=== PATIENT | female | born 1975 | race African-American/Black ===

== ENCOUNTER 2016-08-02 15:43 | Emergency (ER) | payer OTHER ==
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
[2016-08-02 17:51] VITALS: BP 140/88
== END 2016-08-02 17:50 | disposition home or self-care (01) ==
LOC: ER 15:43
DX: S16.1XXA Strain of muscle, fascia and tendon at neck level, initial encounter (principal); S40.012A Contusion of left shoulder, initial encounter; M54.2 Cervicalgia; V43.52XA Car driver injured in collision with other type car in traffic accident, initial encounter; R03.0 Elevated blood-pressure reading, without diagnosis of hypertension; M54.9 Dorsalgia, unspecified; G89.29 Other chronic pain; Z79.891 Long term (current) use of opiate analgesic; Z79.899 Other long term (current) drug therapy
CPT/HCPCS: 99284; 73030; 72125; L0120

== ENCOUNTER 2017-04-19 07:33 | Observation (INO) | payer MEDICARE, MEDICAID ==
[2017-04-19] MEDS ORDERED: MORPHINE SULFATE 10 MG/ML INJ IV ONE (07:58)
[2017-04-19] MEDS ORDERED: RINGERS SOLUTION,LACTATED 1,000 ML IV PRN (08:01)
--- NOTE | 2017-04-19 08:01 | ER Document Report ---
ED General - General Chief Complaint: Boil Stated Complaint: SKIN SORE ON RIGHT BREAST Time Seen by Provider: 04/19/17 07:51 Notes: Patient is a 42-year-old female presents emergency department after referral from the surgery clinic after evaluation yesterday. Patient admits to right breast abscess which she has a history of before that started on Friday. She states she was evaluated in the surgery clinic yesterday and referred to the ED for evaluation to be seen today. She admits to significant pain and refuses to touch or clean the area. She states she has been taking oxycodone at home for pain. N.p.o. before midnight. denies h/o MRSA TRAVEL OUTSIDE OF THE [place] IN LAST 30 DAYS: No - Related Data Allergies/Adverse Reactions: acetaminophen [From Darvocet-N] Adverse Reaction (Verified 04/19/17 08:35) cyclobenzaprine [From Flexeril] Adverse Reaction (Verified 04/19/17 08:35) ibuprofen Adverse Reaction (Verified 04/19/17 08:36) methocarbamol [From Robaxin] Adverse Reaction (Verified 04/19/17 08:35) naproxen [From Naprosyn] Adverse Reaction (Verified 04/19/17 08:35) propoxyphene [From Darvocet-N] Adverse Reaction (Verified 04/19/17 08:35) sulfamethoxazole [From Bactrim] Adverse Reaction (Verified 04/19/17 08:36) trimethoprim [From Bactrim] Adverse Reaction (Verified 04/19/17 08:36) Past Medical History - Social History Smoking Status: Current Every Day Smoker Family History: Reviewed & Not Pertinent Renal/ Medical History: Denies: Hx Peritoneal Dialysis Review of Systems - Review of Systems Constitutional: No symptoms reported Cardiovascular: No symptoms reported Respiratory: No symptoms reported Gastrointestinal: No symptoms reported Skin: See HPI -: Yes All other systems reviewed and negative Physical Exam - Vital signs Vitals: Temp Pulse Resp BP Pulse Ox 98.4 F 112 H 18 114/61 98 04/19/17 07:38 04/19/17 07:38 04/19/17 07:38 04/19/17 07:38 04/19/17 07:38 - Notes Notes: PHYSICAL EXAM GENERAL: Alert, interacts well. LUNGS: Clear to auscultation bilaterally, no wheezes, rales, or rhonchi. No respiratory distress. HEART: Regular rate and rhythm. No murmurs, gallops, or rubs. Breast: patient refused EXTREMITIES: Moves all 4 extremities spontaneously. No edema, radial and dorsalis pedis pulses 2/4 bilaterally. No cyanosis. NEUROLOGICAL: Alert and oriented x4. Normal speech. PSYCH: Normal affect, normal mood. Course - Re-evaluation Re-evalutation: 04/19/17 08:01 Patient is a 42-year-old female is hemodynamically stable, no acute distress afebrile. I did consult Dr. Betancur who is the surgeon auto phone installer to come and evaluate the patient for right breast abscess. Patient to be kept n.p.o., will establish IV access pending surgeon evaluation. 04/19/17 08:53 Patient to be kept n.p.o. and will go or direct with Dr. Betancur. Labs and test sent. - Vital Signs Vital signs: Temp Pulse Resp BP Pulse Ox 98.4 F 112 H 18 114/61 98 04/19/17 07:38 04/19/17 07:38 04/19/17 07:38 04/19/17 07:38 04/19/17 07:38 - Laboratory Result Diagrams: 04/19/17 08:40 Discharge - Discharge Clinical Impression: Abscess of right breast Condition: Stable Disposition: SAME DAY SURGERY Admitting Provider: Surgicalist Unit Admitted: OR
[2017-04-19] MEDS ORDERED: FENTANYL CITRATE INJ/PF 100 MCG/2 ML AMPUL ONE ×2 (08:09→11:00)
[2017-04-19] MEDS ORDERED: PROPOFOL INJ 200 MG/20 ML VIAL IV ONE (08:09)
[2017-04-19] MEDS ORDERED: MIDAZOLAM 2 MG/2 ML INJ ONE (08:09)
--- NOTE | 2017-04-19 08:54 | PDOC H&P ---
History of Present Illness Admission Date/PCP: 04/19/17 08:08 Patient complains of: Right breast abscess History of Present Illness: CADE RODARTE is a 42 year old female Originally from [place], now at [facility] for 1 year, who presents emergency department after being seen by Dr. Betancur in his clinic [facility] approximately 12 hours ago for right breast abscess. Tentatively plans were made for drainage but the patient would have required general anesthesia because of poor pain tolerance, so arrangements were made for drainage on a as needed basis. She is now in the emergency department spontaneously draining purulent discharge from her right breast. According to the patient she has had 10-20 procedures involving incision drainage packing and drain placement involving her axilla bilaterally, breasts bilaterally, and other intertriginous zones. Approximately 7 or 8 years ago she underwent wide excision of the hairbearing area of her left axilla with split-thickness skin grafting from her left thigh to the left axilla for chronic hidradenitis disease. She continues to smoke at least a pack of cigarettes a day, and reports she has never been told the correlation between cigarette smoking and recurrent infections. Patient also has a history of narcotic dependency. She is currently taking prescription oral narcotics. States her pain is unbearable. She is seen in the emergency department; she will require complete drainage and packing of the right breast abscess. 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 She was on Coumadin for 6 months after each procedure. She is currently not on an anticoagulant Pulmonary Medical History: Reports: Other - Heavy smoker Past Surgical History Past Surgical History: History of multiple incision drainage and packing procedures of multiple abscesses including axilla, breast, intertriginous zones felt secondary to hidradenitis suppurativa Past Surgical History: Reports: Other - History of lumbar laminectomies 4 in the mid 1999s, history of hernia Social History Smoking Status: Current Every Day Smoker Family History Family History: Reviewed & Not Pertinent Parental Family History Reviewed: Yes Children Family History Reviewed: Yes Sibling(s) Family History Reviewed.: Yes Medication/Allergy Allergies/Adverse Reactions: acetaminophen [From Darvocet-N] Adverse Reaction (Verified 04/19/17 08:35) cyclobenzaprine [From Flexeril] Adverse Reaction (Verified 04/19/17 08:35) ibuprofen Adverse Reaction (Verified 04/19/17 08:36) methocarbamol [From Robaxin] Adverse Reaction (Verified 04/19/17 08:35) naproxen [From Naprosyn] Adverse Reaction (Verified 04/19/17 08:35) propoxyphene [From Darvocet-N] Adverse Reaction (Verified 04/19/17 08:35) sulfamethoxazole [From Bactrim] Adverse Reaction (Verified 04/19/17 08:36) trimethoprim [From Bactrim] Adverse Reaction (Verified 04/19/17 08:36) Review of Systems Constitutional: PRESENT: as per HPI Eyes: ABSENT: visual disturbances Ears: ABSENT: hearing changes Cardiovascular: PRESENT: as per HPI Respiratory: PRESENT: as per HPI Gastrointestinal: ABSENT: abdominal pain, constipation, diarrhea, hematemesis, hematochezia, nausea, vomiting Physical Exam Vital Signs: Temp Pulse Resp BP Pulse Ox 98.4 F 112 H 18 114/61 98 04/19/17 07:38 04/19/17 07:38 04/19/17 07:38 04/19/17 07:38 04/19/17 07:38 General appearance: PRESENT: other - Severe distress clutching her right breast Head exam: PRESENT: normocephalic Eye exam: PRESENT: EOMI Mouth exam: PRESENT: dry mucosa Neck exam: PRESENT: full ROM Respiratory exam: PRESENT: other - Meds breath sounds bilaterally Cardiovascular exam: PRESENT: RRR Pulses: PRESENT: normal carotid pulses, normal radial pulses GI/Abdominal exam: PRESENT: soft, other - No peritoneal signs Rectal exam: PRESENT: deferred Extremities exam: PRESENT: other - Deferred Musculoskeletal exam: PRESENT: full ROM Psychiatric exam: PRESENT: other - Very anxious Results Status: Imported from PACS Assessment & Plan - Diagnosis (1) Abscess of right breast Is this a current diagnosis for this admission?: Yes Plan: Plan: 1. Patient will be admitted to the hospital at least for observation, taken to the operating room for formal drainage packing possible drain placement. 2. Post operative management will be a challenge with regards to pain management,, chronic narcotic dependency, and multiple reported allergies to pain medications and anxiolytics. (2) Smoker Is this a current diagnosis for this admission?: Yes Plan: I told her in the office and again today in front of her mother she needs to stop smoking or she will continue to have recurrent soft tissue abscesses. (3) History of TIAs Is this a current diagnosis for this admission?: Yes Plan: 2014 by her report, previously on Coumadin now off. (4) Narcotic dependency, continuous Is this a current diagnosis for this admission?: Yes Plan: Currently on oral narcotics. May pose a challenge to postoperative pain management - Time Time Spent: 50 to 70 Minutes Critical Time spent with patient: 15-24 minutes Medications reviewed and adjusted accordingly: Yes Anticipated discharge: Home - Inpatient Certification Based on my medical assessment, after consideration of the patient's comorbidities, presenting symptoms, or acuity I expect that the services needed warrant INPATIENT care.: Yes I certify that my determination is in accordance with my understanding of Medicare's requirements for reasonable and necessary INPATIENT services [42 CFR 412.3e].: Yes Medical Necessity: Need For IV Fluids, Need for Pain Control, Need for IV Antibiotics
[2017-04-19 09:06] LABS: ABSOLUTE BASOPHILS # (AUTO) 0.1 10^3/uL (0.0-0.2); ABSOLUTE EOSINOPHILS # (AUTO) 0.1 10^3/uL (0.0-0.6); ABSOLUTE LYMPHOCYTES (AUTO) 2.9 10^3/uL (0.5-4.7); ABSOLUTE MONOCYTES (AUTO) 1.3 10^3/uL (0.1-1.4); ABSOLUTE NEUT (AUTO) 15.3 10^3/uL (1.7-8.2); BASOPHILS % (AUTO) 0.3 % (0-2); EOSINOPHILS % (AUTO) 0.6 % (0-6); HEMATOCRIT 37.3 % (36.0-47.0); HEMOGLOBIN 12.1 g/dL (12.0-15.5); LYMPHOCYTES % (AUTO) 14.7 % (13-45); MEAN CORPUSCULAR HEMOGLOBIN 28.2 pg (27.0-33.4); MEAN CORPUSCULAR HGB CONC 32.4 g/dL (32.0-36.0); MEAN CORPUSCULAR VOLUME 87 fl (80-97); MONOCYTES % (AUTO) 6.7 % (3-13); PLATELET COUNT 282 10^3/uL (150-450); RED BLOOD COUNT 4.29 10^6/uL (3.72-5.28); RED CELL DISTRIBUTION WIDTH 13.7 % (11.5-14.0); SEGMENTED NEUTROPHILS % (AUTO) 77.7 % (42-78); TOTAL CELLS COUNTED % (AUTO) 100 %; WHITE BLOOD COUNT 19.7 10^3/uL (4.0-10.5)
--- NOTE | 2017-04-19 09:26 | EKG REPORT ---
SEVERITY:- OTHERWISE NORMAL ECG - SINUS TACHYCARDIA : Confirmed by: John Asencio MD 19-Apr-2017 09:25:55
[2017-04-19] MEDS ORDERED: DEXMEDETOMIDINE INJ 80 MCG/20 ML VIAL IV ONE (09:46)
[2017-04-19] MEDS ORDERED: LIDOCAINE 1% INJ-PF (10 MG/ML) 30 ML SDV ONE (10:13)
[2017-04-19] MEDS ORDERED: KETOROLAC TROMETHAMINE 10 MG TABLET PO PRN (10:39)
--- NOTE | 2017-04-19 10:44 | Operative Report ---
Operative Report DATE OF SURGERY: 04/19/17 PREOPERATIVE DIAGNOSIS: 1. Acute right breast abscess. 2. Extensive history of soft tissue abscesses of the axilla, breast and intertriginous zones POSTOPERATIVE DIAGNOSIS: Same OPERATION: Excisional debridement of skin, subcutaneous tissue, and pus from the right breast, packing of abscess cavity SURGEON: HAN DALLAS ANESTHESIA: GA TISSUE REMOVED OR ALTERED: Nonviable skin and subcutaneous tissue right breast COMPLICATIONS: None ESTIMATED BLOOD LOSS: Minimal INTRAOPERATIVE FINDINGS: see below PROCEDURE: Patient was seen in the preop holding area, right breast marked. She was then taken to the main operating room where general anesthesia was induced. Right arm abducted, right breast prepped and draped sterile fashion. Surgical plan, and surgical timeout conducted. The spontaneously draining right breast abscess inferior and lateral to the areola complex, approximately 7 cm from the nipple was opened using a #10 blade. The skin was nonviable so it was excised diameter of approximately 3-1/2-4 cm. Underlying pus, subcutaneous tissue and loculations broken up. The majority of the pus had already decompressed spontaneously. Culture sent for Gram stain and sensitivity. Skin subcutaneous tissue and nonviable tissue all excised with a #10 blade. The abscess tracked fully and laterally and so this pocket was broken up as well. No further debridement was required. Wound irrigated with a liter of saline packed with 1/2 inch iodoform packing, wound covered with 4 x 4's. Patient tolerated the procedure well, extubated, taken recovery in stable condition.
[2017-04-19] MEDS ORDERED: MORPHINE SULFATE 10 MG/ML INJ IV PRN (10:52)
[2017-04-19] MEDS ORDERED: PROMETHAZINE HCL INJ 25 MG/1 ML VIAL IV PRN (10:52)
[2017-04-19] MEDS ORDERED: FENTANYL CITRATE INJ/PF 100 MCG/2 ML AMPUL IV PRN ×3 (10:52)
[2017-04-19] MEDS ORDERED: MORPHINE SULFATE 10 MG/ML INJ INJ ONE (11:00)
[2017-04-19] MEDS: HYDROMORPHONE HCL INJ/PF 2 MG/ML AMPULE IV PRN ×3 (13:19→22:14)
[2017-04-19] MEDS ORDERED: ACETAMINOPHEN 325 MG TABLET PO PRN (14:04)
[2017-04-19] MEDS: PIPERACILLIN SODIUM/TAZOBACTAM 3.375 GM in NORMAL SALINE 100 ML IV SCH (17:58)
[2017-04-19] MEDS: DOCUSATE SODIUM 100 MG CAPSULE PO SCH (17:58)
[2017-04-19] MEDS: RINGERS SOLUTION,LACTATED 1,000 ML IV PRN (17:58)
[2017-04-20] MEDS: PIPERACILLIN SODIUM/TAZOBACTAM 3.375 GM in NORMAL SALINE 100 ML IV SCH ×3 (01:34→17:20)
[2017-04-20] MEDS: RINGERS SOLUTION,LACTATED 1,000 ML IV PRN ×3 (01:35→13:00)
[2017-04-20] MEDS: HYDROMORPHONE HCL INJ/PF 2 MG/ML AMPULE IV PRN ×5 (02:05→23:16)
[2017-04-20] MEDS ORDERED: NICOTINE 21 MG/24 HR PATCH.TD24 TD ONE (11:00)
[2017-04-20] MEDS: DOCUSATE SODIUM 100 MG CAPSULE PO SCH ×2 (11:00→17:20)
[2017-04-20] MEDS ORDERED: HYDROMORPHONE HCL INJ/PF 2 MG/ML AMPULE ONE (12:43)
[2017-04-20] MEDS ORDERED: HYDROMORPHONE HCL INJ/PF 2 MG/ML AMPULE IV ONE (13:00)
--- NOTE | 2017-04-20 18:57 | PDOC PROGRESS REPORT ---
Subjective Progress Note for:: 04/20/17 Reason For Visit: ACUTE RIGHT BREAST ABSCESS Postoperative day 1 status post incision drainage packing of right breast abscess; patient had packing changed today. Tolerated reasonably well. She still requiring IV narcotics Physical Exam Vital Signs: Temp Pulse Resp BP Pulse Ox 98.9 F 98 16 139/60 H 100 04/20/17 08:12 04/20/17 11:30 04/20/17 11:30 04/20/17 11:30 04/20/17 11:30 Intake & Output 04/19/17 04/20/17 04/21/17 06:59 06:59 06:59 Intake Total 2870 Output Total 820 Balance 2049 Weight 94.4 kg General appearance: PRESENT: no acute distress Skin exam: PRESENT: other - Breast examined, packing not removed. Swelling diminished Results Laboratory Results: 04/19/17 08:40 Assessment & Plan - Diagnosis (1) Abscess of right breast Is this a current diagnosis for this admission?: Yes Plan: 1 day status post incision drainage packing, now with dressing changes 1, no growth so far on micro, on empiric IV antibiotic therapy, requiring IV narcotic for pain medicine Recommendation: 1. Continue antibiotics today 2. Discharge home tomorrow with dressing changes, may require referral to pain management. (2) Smoker Is this a current diagnosis for this admission?: Yes (3) History of TIAs Is this a current diagnosis for this admission?: Yes (4) Narcotic dependency, continuous Is this a current diagnosis for this admission?: Yes
[2017-04-21] MEDS: HYDROMORPHONE HCL INJ/PF 2 MG/ML AMPULE IV PRN (07:19)
[2017-04-21 09:11] VITALS: BP 139/88
[2017-04-21] MEDS ORDERED: PIPERACILLIN SODIUM/TAZOBACTAM 3.375 GM in NORMAL SALINE 100 ML IV SCH (10:00)
[2017-04-21] MEDS ORDERED: FLUCONAZOLE 100 MG TABLET PO ONE (10:00)
[2017-04-21] MEDS ORDERED: NICOTINE 21 MG/24 HR PATCH.TD24 TD SCH (10:00)
--- NOTE | 2017-04-21 13:48 | PDOC DISCHARGE SUMMARY ---
Discharge Summary (SDC) - Discharge Final Diagnosis: Abscess right breast Date of Surgery: 04/19/17 - I&D ,debridement Dr Betancur Condition: Stable Forms: Discharge POC-Adult Treatment or Instructions: Packing to be removed in the surgical clinic 04/24/17. Referrals: HAN BETANCUR MD [ACTIVE STAFF] - 04/24/17 1:45 am (follow up 04/24/2017) Discharge Activity: Activity As Tolerated Home Care Assistance: None Needed Report the Following to Your Physician Immediately: Shortness of Breath, Fever over 101 Degrees, Unusual Bleeding, Redness, Swelling, Warmth, Increased Soreness, Drainage-Yellow, Drainage-Graham, Drainage-Green, Drainage-Foul Smelling
== END 2017-04-21 10:06 | disposition home or self-care (01) ==
LOC: ER 07:33 → EH 08:08 → 2S 11:35
PROVIDERS: ADMIT Surgery; ATTEND Surgery
PROC: 0JB60ZZ Excision of Chest Subcutaneous Tissue and Fascia, Open Approach (ICD-10-PCS; 2017-04-19)
PROC: 0H9T0ZX Drainage of Right Breast, Open Approach, Diagnostic (ICD-10-PCS; principal; 2017-04-19 09:30)
DX: N61.1 Abscess of the breast and nipple (principal); F17.210 Nicotine dependence, cigarettes, uncomplicated; F11.20 Opioid dependence, uncomplicated; Z98.890 Other specified postprocedural states; Z86.73 Personal history of transient ischemic attack (TIA), and cerebral infarction without residual deficits; Z87.2 Personal history of diseases of the skin and subcutaneous tissue
CPT/HCPCS: 93005; 99284; 96374; 36415; 87070; 87205; 85025; 81025; 87075; 87077; 93010; 19120; A6266; A9270 ×4; J2250; J3010; J3490 ×2; J2270; J1170 ×3; J7120 ×2; J2704; J2543 ×3; 400; G0378

== ENCOUNTER 2017-08-30 06:20 | Emergency (ER) | payer MEDICARE, MEDICAID ==
[2017-08-30] MEDS ORDERED: METHYLPREDNISOLONE INJ 125 MG/2 ML SDV IV ONE (06:30)
[2017-08-30] MEDS ORDERED: IPRATROPIUM/ALBUTEROL 0.5-2.5 MG/3 ML AMPUL NEB ONE (06:30)
[2017-08-30] MEDS ORDERED: MAGNESIUM SULFATE/D5W 1 GM/100 ML RTUPB IV ONE (06:35)
[2017-08-30] MEDS: ALBUTEROL SULFATE 0.083% NEB 2.5 MG/3 ML AMPUL NEB SCH ×2 (06:37→06:49)
[2017-08-30] MEDS ORDERED: NORMAL SALINE 1000 ML 1,000 ML IV ONE (06:41)
[2017-08-30 06:49] LABS: ABSOLUTE BASOPHILS # (AUTO) 0.1 10^3/uL (0.0-0.2); ABSOLUTE LYMPHOCYTES (AUTO) 2.1 10^3/uL (0.5-4.7); ABSOLUTE MONOCYTES (AUTO) 0.4 10^3/uL (0.1-1.4); ABSOLUTE NEUT (AUTO) 14.3 10^3/uL (1.7-8.2); BASOPHILS % (AUTO) 0.4 % (0-2); EOSINOPHILS % (AUTO) 0.1 % (0-6); HEMATOCRIT 42.3 % (36.0-47.0); LYMPHOCYTES % (AUTO) 12.2 % (13-45); MEAN CORPUSCULAR HEMOGLOBIN 28.3 pg (27.0-33.4); MEAN CORPUSCULAR HGB CONC 33.2 g/dL (32.0-36.0); MEAN CORPUSCULAR VOLUME 85 fl (80-97); MONOCYTES % (AUTO) 2.5 % (3-13); PLATELET COUNT 355 10^3/uL (150-450); RED BLOOD COUNT 4.95 10^6/uL (3.72-5.28); RED CELL DISTRIBUTION WIDTH 14.4 % (11.5-14.0); SEGMENTED NEUTROPHILS % (AUTO) 84.8 % (42-78); TOTAL CELLS COUNTED % (AUTO) 100 %; WHITE BLOOD COUNT 16.9 10^3/uL (4.0-10.5)
[2017-08-30 07:06] LABS: ALANINE AMINOTRANSFERASE 21 U/L (9-52); ALBUMIN 4.8 g/dL (3.5-5.0); ALKALINE PHOSPHATASE 76 U/L (38-126); ANION GAP 15 (5-19); ASPARTATE AMINO TRANSFERASE 16 U/L (14-36); BILIRUBIN,DIRECT 0.4 mg/dL (0.0-0.4); BILIRUBIN,TOTAL 0.5 mg/dL (0.2-1.3); BLOOD UREA NITROGEN 9 mg/dL (7-20); CALCIUM 10.6 mg/dL (8.4-10.2); CARBON DIOXIDE 19 mmol/L (22-30); CHLORIDE 108 mmol/L (98-107); GLUCOSE 130 mg/dL (75-110); LIPASE 46.6 U/L (23-300); POTASSIUM 4.9 mmol/L (3.6-5.0); SODIUM 141.6 mmol/L (137-145); TOTAL PROTEIN 7.8 g/dL (6.3-8.2)
--- NOTE | 2017-08-30 07:24 | ER Document Report ---
ED General - General Chief Complaint: Asthma Exacerbation Stated Complaint: DIFFICULTY BREATHING Time Seen by Provider: 08/30/17 06:34 TRAVEL OUTSIDE OF THE [place] IN LAST 30 DAYS: No - HPI Patient complains to provider of: Difficulty breathing Notes: Patient coming in today for difficulty in breathing. Patient states as symptoms of upper respiratory tract infection ongoing for approximately a week no fevers no chills no nausea no vomiting over states her story symptoms worsen. Patient states she does have a history of asthma and states that currently at this time that she is not smoking however patient does have a smoking history. Denies any recent antibiotics denies any recent travel patient was tachypneic and slight tachycardic upon my evaluation. Denies any pain in her chest denies any pain in her abdomen with swelling of her legs. Denies a history of ICU admissions or intubations - Related Data Allergies/Adverse Reactions: acetaminophen [From Darvocet-N] Adverse Reaction (Verified 04/19/17 08:35) cyclobenzaprine [From Flexeril] Adverse Reaction (Verified 04/19/17 08:35) ibuprofen Adverse Reaction (Verified 04/19/17 08:36) methocarbamol [From Robaxin] Adverse Reaction (Verified 04/19/17 08:35) naproxen [From Naprosyn] Adverse Reaction (Verified 04/19/17 08:35) propoxyphene [From Darvocet-N] Adverse Reaction (Verified 04/19/17 08:35) sulfamethoxazole [From Bactrim] Adverse Reaction (Verified 04/19/17 08:36) trimethoprim [From Bactrim] Adverse Reaction (Verified 04/19/17 08:36) Past Medical History - Social History Smoking Status: Former Smoker Chew tobacco use (# tins/day): No Frequency of alcohol use: None Drug Abuse: None Family History: Reviewed & Not Pertinent Patient has suicidal ideation: No Patient has homicidal ideation: No Renal/ Medical History: Denies: Hx Peritoneal Dialysis Past Surgical History: Reports: Other - History of lumbar laminectomies 4 in the mid 1999s, history of hernia Review of Systems - Review of Systems Constitutional: No symptoms reported EENT: No symptoms reported Cardiovascular: No symptoms reported Respiratory: Cough, Short of breath, Wheezing Gastrointestinal: No symptoms reported Genitourinary: No symptoms reported Female Genitourinary: No symptoms reported Musculoskeletal: No symptoms reported Skin: No symptoms reported Hematologic/Lymphatic: No symptoms reported Neurological/Psychological: No symptoms reported -: Yes All other systems reviewed and negative Physical Exam - Vital signs Vitals: Temp Pulse Resp BP Pulse Ox 98.6 F 108 H 28 H 115/78 100 08/30/17 06:26 08/30/17 06:26 08/30/17 06:26 08/30/17 06:26 08/30/17 06:26 Interpretation: Tachycardic, Tachypneic - General General appearance: Appears well, Alert - HEENT Head: Normocephalic, Atraumatic Eyes: Normal Pupils: PERRL - Respiratory Respiratory status: No respiratory distress, Tachypnea Chest status: Nontender Breath sounds: Wheezing Chest palpation: Normal - Cardiovascular Rhythm: Regular Heart sounds: Normal auscultation Murmur: No - Abdominal Inspection: Normal Distension: No distension Bowel sounds: Normal Tenderness: Nontender Organomegaly: No organomegaly - Back Back: Normal, Nontender - Extremities General upper extremity: Normal inspection, Nontender, Normal color, Normal ROM , Normal temperature General lower extremity: Normal inspection, Nontender, Normal color, Normal ROM , Normal temperature, Normal weight bearing. No: Daniella's sign - Neurological Neuro grossly intact: Yes Cognition: Normal Orientation: AAOx4 María Coma Scale Eye Opening: Spontaneous María Coma Scale Verbal: Oriented María Coma Scale Motor: Obeys Commands María Coma Scale Total: 15 Speech: Normal Motor strength normal: LUE, RUE, LLE, RLE Sensory: Normal - Psychological Associated symptoms: Normal affect, Normal mood - Skin Skin Temperature: Warm Skin Moisture: Dry Skin Color: Normal Course - Re-evaluation Re-evalutation: 08/30/17 14:44 Patient with improvement in her story status after multiple otherwise treatments magnesium. Explained patient that she would need to stay with me by smokes for the last few days and to stop smoking herself. Do not see need for any antibiotics at this time will start patient on steroids. Patient is understanding will be discharged home. - Vital Signs Vital signs: Temp Pulse Resp BP Pulse Ox 98.4 F 108 H 12 127/77 H 85 L 08/30/17 08:01 08/30/17 06:26 08/30/17 08:01 08/30/17 08:00 08/30/17 08:01 - Laboratory Result Diagrams: 08/30/17 06:33 08/30/17 06:33 Laboratory results interpreted by me: 08/30/17 08/30/17 06:33 06:33 WBC 16.9 H RDW 14.4 H Seg Neutrophils % 84.8 H Lymphocytes % 12.2 L Monocytes % 2.5 L Absolute Neutrophils 14.3 H Chloride 108 H Carbon Dioxide 19 L Glucose 130 H Calcium 10.6 H Discharge - Discharge Clinical Impression: Asthma exacerbation Qualifiers: Asthma severity: unspecified severity Asthma persistence: unspecified Qualified Code(s): J45.901 - Unspecified asthma with (acute) exacerbation Disposition: HOME, SELF-CARE Instructions: Asthma ([facility]), Family Physicians / Practices, Inhaled Bronchodilators ([facility]), Stop Smoking ([facility]) Additional Instructions: Follow-up with your primary care provider. Return to ER symptoms worsen. Take medications as prescribed. Please stop smoking. Medications have been given today will only help her symptoms however if you continued to smoke she will continue to be sick. Please use inhaler that we gave you here in the ER 2 puffs every 4 hours for any shortness of breath also he may use it in between that time for any coughing shortness of breath. Prescriptions: Benzonatate [Tessalon Perle 100 mg Capsule] 100 mg PO Q8HP PRN #40 cap PRN Reason: Albuterol Sulfate [Proair HFA Inhalation Aerosol 8.5 gm MDI] 2 puff IH Q4H PRN # 1 mdi PRN Reason: Albuterol Sulfate [Albuterol Sulfate 2.5mg/3 mL] 1 vial IH Q4 PRN #30 vial PRN Reason: Nebulizer [Compact Compressor Nebulizer] 1 each MC Q4 #1 each Prednisone [Deltasone] 60 mg PO DAILY #24 tablet Forms: Return to Work
--- NOTE | 2017-08-30 07:27 | RADIOLOGY REPORT (SQ) ---
EXAM DESCRIPTION: XR CHEST 1 VIEW CLINICAL HISTORY: 42 years Female, SOB COMPARISON: None. NUMBER OF VIEWS/TECHNIQUE: 1/AP FINDINGS: Adequate lung volume, clear parenchyma, normal cardiac silhouette, and intact bony thorax. IMPRESSION: No acute cardiopulmonary findings.
[2017-08-30 08:02] VITALS: BP 127/77
[2017-08-30] MEDS ORDERED: PREDNISONE 20 MG TABLET PO ONE (08:07)
[2017-08-30] MEDS ORDERED: BENZONATATE 100 MG CAPSULE PO ONE (08:09)
== END 2017-08-30 08:34 | disposition home or self-care (01) ==
LOC: ER 06:20
DX: J45.901 Unspecified asthma with (acute) exacerbation (principal); Z87.891 Personal history of nicotine dependence; R00.0 Tachycardia, unspecified; R06.82 Tachypnea, not elsewhere classified; R05 Cough; Z88.5 Allergy status to narcotic agent; Z88.8 Allergy status to other drugs, medicaments and biological substances
CPT/HCPCS: 94640; 99285; 96375; 96365; 36415; 83690; 83735; 85025; 80053; 71045; A9270 ×3; J2930; J3475; J7030; J7512

== ENCOUNTER → 2017-09-23 | Outpatient (CLI) | payer MEDICAID, MEDICARE ==
--- NOTE | 2017-09-23 09:51 | RADIOLOGY REPORT (SQ) ---
EXAM DESCRIPTION: CT HEAD WITHOUT COMPLETED DATE/TIME: 09/23/2017 9:39 am REASON FOR STUDY: HEADACHE R51 HEADACHE COMPARISON: None. TECHNIQUE: Axial images acquired through the brain without intravenous contrast. Images reviewed wi th bone, brain and subdural windows. Additional sagittal and coronal reconstructions were generated. Images stored on PACS. All CT scanners at this facility use dose modulation, iterative reconstruction, and/or weight based d osing when appropriate to reduce radiation dose to as low as reasonably achievable (ALARA). [facility]: Dose Right [facility]: CareDose [facility]: Dose Right [facility]: Teradose 4D [facility]: [employer] RADIATION DOSE: CT Rad equipment meets quality standard of care and radiation dose reduction techniq ues were employed. CTDIvol: 48.7 mGy. DLP: 955 mGy-cm. mGy. LIMITATIONS: None. FINDINGS: VENTRICLES: Normal size and contour. CEREBRUM: No masses. No hemorrhage. No midline shift. No evidence for acute infarction. Normal gra y/white matter differentiation. No areas of low density in the white matter. CEREBELLUM: No masses. No hemorrhage. No alteration of density. No evidence for acute infarction. EXTRAAXIAL SPACES: No fluid collections. No masses. ORBITS AND GLOBE: No intra- or extraconal masses. Normal contour of globe without masses. 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 CALVARIUM: No fracture. PARANASAL SINUSES: Circumferential mucous membrane thickening left maxillary sinus with left back flu leena a bowel obstruction on coronal images 11-13. Mucous membrane thickening throughout the sphenoid sinus. SOFT TISSUES: No mass or hematoma. OTHER: No other significant finding. IMPRESSION: No acute intracranial changes. Left maxillary and left sphenoid sinus inflammatory changes. EVIDENCE OF ACUTE STROKE: NO. COMMENT: Quality ID # [id number]: Final reports with documentation of one or more dose reduction techniques (e.g., Automated exposure control, adjustment of the mA and/or kV according to patient size, use of iterative reconstruction technique) TECHNICAL DOCUMENTATION: JOB ID: [id number] [employer]- All Rights Reserved Reading location - IP/workstation name: [email or web address]
== END ==
LOC: RAD 09:17
PROVIDERS: ATTEND Internal Medicine
DX: R51 Headache (principal)
CPT/HCPCS: 70450

== ENCOUNTER 2018-01-19 14:49 | Emergency (ER) | payer MEDICARE, MEDICAID ==
[2018-01-19] MEDS ORDERED: ASPIRIN 81 MG TABLET, CHEWABLE PO ONE (15:16)
[2018-01-19] MEDS ORDERED: DIAZEPAM INJ 10 MG/2 ML DISP.SYRIN IV ONE (15:17)
--- NOTE | 2018-01-19 15:22 | ER Document Report ---
ED Medical Screen (RME) - General Chief Complaint: Chest Pain Stated Complaint: CHEST PAIN Time Seen by Provider: 01/19/18 15:09 Mode of Arrival: Ambulatory Information source: Patient Notes: 42-year-old female with a history of hypertension presents emergency department with complaints of left chest pain. Patient describes the pain as a sharp, stabbing, aching, pressure sensation. Patient states that the pain has been intermittent for the last 3 days. She states that is been constant since 930 this morning. It started while she was sitting down. Patient states that the pain starts in the left chest and radiates to the left neck the left back and the left arm. She is having some numbness and tingling in the left arm. Patient is also having some associated shortness of breath. Patient states that initially she thought this was gas and tried Gas-X at home without relief of symptoms. Patient states that she has a history of hypertension but denies any diabetes, hyperlipidemia, coronary artery disease. She states that she does have a family history of coronary artery disease and she does smoke. Patient denies any recent travel, recent surgeries, history of DVT or PE. Patient does get depo provera and has a history of cervical cancer. I have greeted and performed a rapid initial assessment of this patient. A comprehensive ED assessment and evaluation of the patient, analysis of test results and completion of the medical decision making process will be conducted by additional ED providers. PHYSICAL EXAMINATION: GENERAL: Well-appearing, well-nourished and in no acute distress. HEAD: Atraumatic, normocephalic. EYES: Pupils equal round extraocular movements intact, conjunctiva are normal. ENT: Nares patent NECK: Normal range of motion LUNGS: No respiratory distress Musculoskeletal: Normal range of motion. Tenderness to palpation in the left paracervical muscle, left trapezius muscle, left deltoid, left arm, left anterior chest wall. NEUROLOGICAL: Normal speech, normal gait. PSYCH: Normal mood, normal affect. SKIN: Warm, Dry, normal turgor, no rashes or lesions noted. TRAVEL OUTSIDE OF THE [place] IN LAST 30 DAYS: No - Related Data Allergies/Adverse Reactions: acetaminophen [From Darvocet-N] Adverse Reaction (Verified 04/19/17 08:35) cyclobenzaprine [From Flexeril] Adverse Reaction (Verified 04/19/17 08:35) ibuprofen Adverse Reaction (Verified 04/19/17 08:36) methocarbamol [From Robaxin] Adverse Reaction (Verified 04/19/17 08:35) naproxen [From Naprosyn] Adverse Reaction (Verified 04/19/17 08:35) propoxyphene [From Darvocet-N] Adverse Reaction (Verified 04/19/17 08:35) sulfamethoxazole [From Bactrim] Adverse Reaction (Verified 04/19/17 08:36) trimethoprim [From Bactrim] Adverse Reaction (Verified 04/19/17 08:36) Past Medical History - Social History Chew tobacco use (# tins/day): No Frequency of alcohol use: None Drug Abuse: None Pulmonary Medical History: Reports: Hx Asthma Renal/ Medical History: Denies: Hx Peritoneal Dialysis Past Surgical History: Reports: Hx Orthopedic Surgery - back, Other - History of lumbar laminectomies 4 in the mid 1999s, history of hernia - Immunizations History of Influenza Vaccine for 01/2017 - 06/2017 Season: Refused Physical Exam - Vital signs Vitals: Temp Pulse Resp BP Pulse Ox 97.2 F 96 20 163/107 H 98 01/19/18 15:06 01/19/18 15:06 01/19/18 15:06 01/19/18 15:06 01/19/18 15:06 Course - Vital Signs Vital signs: Temp Pulse Resp BP Pulse Ox 97.2 F 96 20 163/107 H 98 01/19/18 15:06 01/19/18 15:06 01/19/18 15:06 01/19/18 15:06 01/19/18 15:06 Doctor's Discharge - Discharge Referrals: ADELAIDE THOMAS MD [Primary Care Provider] - Follow up as needed
[2018-01-19 15:51] LABS: ABSOLUTE BASOPHILS # (AUTO) 0.1 10^3/uL (0.0-0.2); ABSOLUTE EOSINOPHILS # (AUTO) 0.1 10^3/uL (0.0-0.6); ABSOLUTE LYMPHOCYTES (AUTO) 4.8 10^3/uL (0.5-4.7); ABSOLUTE MONOCYTES (AUTO) 0.7 10^3/uL (0.1-1.4); BASOPHILS % (AUTO) 0.8 % (0-2); EOSINOPHILS % (AUTO) 0.9 % (0-6); HEMATOCRIT 40.3 % (36.0-47.0); HEMOGLOBIN 13.5 g/dL (12.0-15.5); MEAN CORPUSCULAR HEMOGLOBIN 29.1 pg (27.0-33.4); MEAN CORPUSCULAR HGB CONC 33.5 g/dL (32.0-36.0); MEAN CORPUSCULAR VOLUME 87 fl (80-97); MONOCYTES % (AUTO) 4.8 % (3-13); PLATELET COUNT 307 10^3/uL (150-450); RED BLOOD COUNT 4.64 10^6/uL (3.72-5.28); RED CELL DISTRIBUTION WIDTH 13.9 % (11.5-14.0); SEGMENTED NEUTROPHILS % (AUTO) 58.5 % (42-78); TOTAL CELLS COUNTED % (AUTO) 100 %; WHITE BLOOD COUNT 13.7 10^3/uL (4.0-10.5)
[2018-01-19 16:20] LABS: ALANINE AMINOTRANSFERASE 14 U/L (9-52); ALBUMIN 4.8 g/dL (3.5-5.0); ALKALINE PHOSPHATASE 83 U/L (38-126); ANION GAP 13 (5-19); ASPARTATE AMINO TRANSFERASE 28 U/L (14-36); BILIRUBIN,DIRECT 0.2 mg/dL (0.0-0.4); BILIRUBIN,TOTAL 0.4 mg/dL (0.2-1.3); BLOOD UREA NITROGEN 11 mg/dL (7-20); CALCIUM 9.4 mg/dL (8.4-10.2); CARBON DIOXIDE 19 mmol/L (22-30); CHLORIDE 109 mmol/L (98-107); CREATINE KINASE 195 U/L (30-135); GLUCOSE 92 mg/dL (75-110); POTASSIUM 3.9 mmol/L (3.6-5.0); SODIUM 140.6 mmol/L (137-145); TOTAL PROTEIN 8.3 g/dL (6.3-8.2)
[2018-01-19 16:30] LABS: CREATINE KINASE MB 0.69 ng/mL (<4.55)
[2018-01-19 16:31] LABS: TROPONIN I < 0.012 ng/mL
--- NOTE | 2018-01-19 16:41 | RADIOLOGY REPORT (SQ) ---
EXAM DESCRIPTION: CHEST SINGLE VIEW COMPLETED DATE/TIME: 01/19/2018 4:21 pm REASON FOR STUDY: chest pain COMPARISON: 08/30/2017 EXAM PARAMETERS: NUMBER OF VIEWS: One view. TECHNIQUE: Single frontal radiographic view of the chest acquired. RADIATION DOSE: NA LIMITATIONS: None. FINDINGS: LUNGS AND PLEURA: No opacities, masses or pneumothorax. No pleural effusion. MEDIASTINUM AND HILAR STRUCTURES: No masses. Contour normal. HEART AND VASCULAR STRUCTURES: Heart normal in size. Normal vasculature. BONES: No acute findings. HARDWARE: None in the chest. OTHER: No other significant finding. IMPRESSION: 1. No significant interval changes since the prior examination dated 08/30/2017. No acu te finding. TECHNICAL DOCUMENTATION: JOB ID: [id number] [employer]- All Rights Reserved Reading location - IP/workstation name: [email or web address]
--- NOTE | 2018-01-19 16:54 | ER Document Report ---
ED General - General Mode of Arrival: Ambulatory Information source: Patient TRAVEL OUTSIDE OF THE [place] IN LAST 30 DAYS: No <MAMTA GUERIN - Last Filed: 01/19/18 17:25> <TIAN NEGRETE - Last Filed: 01/20/18 00:52> - General Chief Complaint: Chest Pain Stated Complaint: CHEST PAIN Time Seen by Provider: 01/19/18 15:09 Notes: Patient is a 42 year old female, narcotic dependent with HTN, chronic back pain on chronic pain management presents to the emergency department complaining of left sided chest pain onset 3 days ago worsening today. Patient states the chest pain was intermittent until today when it became a constant sharp, stabbing, aching pressure. Patient states the pain radiates into the left side of her neck, shoulder, back and arm. Patient states her home medications of 10mg Percocet (4x daily) and muscle relaxers are not helping her pain. Patient states she NSAIDs make her nauseous. Patient is on the depo shot. (MAMTA GUERIN) - Related Data Allergies/Adverse Reactions: acetaminophen [From Darvocet-N] Adverse Reaction (Verified 04/19/17 08:35) cyclobenzaprine [From Flexeril] Adverse Reaction (Verified 04/19/17 08:35) ibuprofen Adverse Reaction (Verified 04/19/17 08:36) methocarbamol [From Robaxin] Adverse Reaction (Verified 04/19/17 08:35) naproxen [From Naprosyn] Adverse Reaction (Verified 04/19/17 08:35) propoxyphene [From Darvocet-N] Adverse Reaction (Verified 04/19/17 08:35) sulfamethoxazole [From Bactrim] Adverse Reaction (Verified 04/19/17 08:36) trimethoprim [From Bactrim] Adverse Reaction (Verified 04/19/17 08:36) Past Medical History - General Information source: Patient - Social History Smoking Status: Current Every Day Smoker Chew tobacco use (# tins/day): No Frequency of alcohol use: None Drug Abuse: None Family History: Reviewed & Not Pertinent Patient has suicidal ideation: No Patient has homicidal ideation: No Pulmonary Medical History: Reports: Hx Asthma Past Surgical History: Reports: Hx Orthopedic Surgery - back, Other - History of lumbar laminectomies 4 in the mid 2000s, history of hernia <MAMTA GUERIN - Last Filed: 01/19/18 17:25> Review of Systems - Review of Systems Constitutional: No symptoms reported EENT: No symptoms reported Cardiovascular: See HPI, Chest pain Respiratory: No symptoms reported Gastrointestinal: No symptoms reported Genitourinary: No symptoms reported Female Genitourinary: No symptoms reported Musculoskeletal: See HPI Skin: No symptoms reported Hematologic/Lymphatic: No symptoms reported Neurological/Psychological: No symptoms reported -: Yes All other systems reviewed and negative <MAMTA GUERIN - Last Filed: 01/19/18 17:25> Physical Exam - General General appearance: Appears well, Alert, Other - Patient squirms and is very dramatic when palpating the mentioned painful areas. In distress: None - HEENT Head: Normocephalic, Atraumatic Eyes: Normal Conjunctiva: Normal Extraocular movements intact: Yes Pupils: PERRL Mucous membranes: Normal Neck: Other - Tender to palpation to the left posterior cervical muscles. - Respiratory Respiratory status: No respiratory distress Chest status: Tender - Tender to palpation to left anterior chest wall Breath sounds: Normal Chest palpation: Normal - Cardiovascular Rhythm: Regular Heart sounds: Normal auscultation Murmur: No Friction rub: No Gallop: None auscultated - Abdominal Inspection: Normal Distension: No distension Bowel sounds: Normal Tenderness: Nontender Organomegaly: No organomegaly - Back Back: Tender - Tender to palpation to the left scapula. - Extremities General upper extremity: Normal ROM General lower extremity: Normal ROM Shoulder: Tender - Tender to palpation to the left shoulder and trapezius. - Neurological Neuro grossly intact: Yes Cognition: Normal Orientation: AAOx4 María Coma Scale Eye Opening: Spontaneous [place] Coma Scale Verbal: Oriented María Coma Scale Motor: Obeys Commands María Coma Scale Total: 15 Speech: Normal - Psychological Associated symptoms: Normal affect, Normal mood - Skin Skin Temperature: Warm Skin Moisture: Dry Skin Color: Normal <MAMTA GUERIN - Last Filed: 01/19/18 17:25> - Vital signs Vitals: Temp Pulse Resp BP Pulse Ox 97.2 F 96 20 163/107 H 98 01/19/18 15:06 01/19/18 15:06 01/19/18 15:06 01/19/18 15:06 01/19/18 15:06 Course - Laboratory Result Diagrams: 01/19/18 15:30 01/19/18 15:30 <MAMTA GUERIN - Last Filed: 01/19/18 17:25> - Laboratory Result Diagrams: 01/19/18 15:30 01/19/18 15:30 - Diagnostic Test Radiology reviewed: Image reviewed, Reports reviewed - Chest x-ray shows no acute findings or other abnormalities. - EKG Interpretation by Me EKG shows normal: Sinus rhythm, [place], Intervals, QRS Complexes, ST-T Waves Rate: Normal - 97 Rhythm: NSR When compared to previous EKG there are: No significant change <TIAN NEGRETE - Last Filed: 01/20/18 00:52> - Re-evaluation Re-evalutation: 01/19/18 17:35 Patient's chest x-ray and EKG are normal. The cardiac enzymes are undetectable. The physical exam shows reproducible tenderness throughout the left shoulder girdle region including the neck, trapezius muscles, scapular muscles, shoulder muscles, and anterior chest wall muscles. The patient is on high-dose chronic narcotic therapy and muscle relaxer therapy. She cannot take oral NSAIDs. I have informed her that there is really nothing else that we can offer her other than the sling to allow her to let the muscles relax without the arm moving making it hurt more. 01/20/18 00:40 The patient was discharged before I had a chance to go back and check on the sling. Reviewing the records and having the charge nurse look in the Pyxis, it is determined that the sling was never placed on the patient. (TIAN NEGRETE) - Vital Signs Vital signs: Temp Pulse Resp BP Pulse Ox 97 F L 83 16 152/80 H 100 01/19/18 18:00 01/19/18 18:22 01/19/18 18:22 01/19/18 18:22 01/19/18 18:22 - Laboratory Laboratory results interpreted by me: 01/19/18 01/19/18 15:30 15:30 WBC 13.7 H Absolute Lymphocytes 4.8 H Chloride 109 H Carbon Dioxide 19 L Creatine Kinase 195 H Total Protein 8.3 H Discharge <MAMTA GUERIN - Last Filed: 01/19/18 17:25> <TIAN NEGRETE - Last Filed: 01/20/18 00:52> - Discharge Clinical Impression: Chest wall pain Muscle strain of left shoulder region Qualifiers: Encounter type: initial encounter Qualified Code(s): S46.912A - Strain of unspecified muscle, fascia and tendon at shoulder and upper arm level, left arm , initial encounter Condition: Stable Disposition: HOME, SELF-CARE Additional Instructions: Chest Wall Pain: Your chest pain has been diagnosed as coming from the chest wall. This is often caused by straining the muscles or joints in the chest during physical activity, direct trauma, coughing, or vigorous vomiting. Persons with arthritis are especially prone to this type of pain, due to inflammation of the cartilage joints near the breast bone. Occasionally, no cause can be found. Rest from strenuous physical activity. This kind of chest pain is usually made worse by movement of the chest. Depending on the symptoms, we may prescribe medicine for pain, muscle relaxation, and antiinflammatory effects. If the pain is new, and seems to be due to muscle strain, cold packs can help. Otherwise, apply gentle warmth to the painful area for 15 minutes every hour or two. You should contact the doctor immediately if things change. Further evaluation is needed if you develop a fever or cough, if the nature of the pain changes, or if you become short of breath. Shoulder Muscle Strain: You have probably strained the muscles involved with movement of your left shoulde. This often occurs with strenuous exertion, or during an injury that suddenly stretches the muscle. The seriousness of a strain varies. Some strains heal within days, others cause problems for months. X-rays cannot show a muscle strain. X-rays are taken only if symptoms suggest that a fracture could be present. The usual treatment of a muscle strain is rest and ice packs. Sometimes, a sling, splint, or crutches may be necessary to rest the muscle. The muscle can be used again once pain subsides. Severe strains require a special exercise and stretching program to prevent permanent stiffness and disability. Your doctor will advise you if this will be necessary. Call the doctor immediately if pain or swelling becomes severe, or if numbness or discoloration develop. Your pain is coming from the muscles surrounding the left shoulder and involved with movement of the left shoulder. You are already on high-dose narcotic therapy and muscle relaxers. You cannot take oral NSAIDs. The only other thing I can offer you is the sling to support the shoulder so you can let the muscles relax, and try ice packs and/or moist heat. You should follow-up with your primary care provider if adding the sling does not improve your discomfort adequately. RETURN TO THE EMERGENCY ROOM IF ANY NEW OR WORSENING SYMPTOMS. Referrals: ADELAIDE THOMAS MD [Primary Care Provider] - Follow up in 3-5 days Scribe Attestation: 01/19/18 17:40 I personally performed the services described in the documentation, reviewed and edited the documentation which was dictated to the scribe in my presence, and it accurately records my words and actions. (TIAN NEGRETE) Scribe Documentation - Scribe Written by Arnaldo:: Arnaldo De La Rosa, 01/19/2018 17:15 acting as scribe for :: Meredith <MAMTA GUERIN - Last Filed: 01/19/18 17:25>
[2018-01-19] MEDS ORDERED: KETOROLAC TROMETHAMINE INJ/PF 30 MG/1 ML SDV IV ONE (16:55)
--- NOTE | 2018-01-19 17:33 | EKG REPORT ---
SEVERITY:- NORMAL ECG - SINUS RHYTHM : Confirmed by: John Asencio MD 19-Jan-2018 17:33:17
[2018-01-19] MEDS ORDERED: HYDROMORPHONE HCL INJ/PF 2 MG/ML AMPULE IV ONE (17:46)
[2018-01-19 18:01] VITALS: BP 152/80
== END 2018-01-19 18:07 | disposition home or self-care (01) ==
LOC: ER 14:49
DX: S46.912A Strain of unspecified muscle, fascia and tendon at shoulder and upper arm level, left arm, initial encounter (principal); R07.9 Chest pain, unspecified; X58.XXXA Exposure to other specified factors, initial encounter; F17.200 Nicotine dependence, unspecified, uncomplicated; I10 Essential (primary) hypertension; G89.29 Other chronic pain; M54.9 Dorsalgia, unspecified; Z88.6 Allergy status to analgesic agent; Z88.3 Allergy status to other anti-infective agents
CPT/HCPCS: 93005; 99285; 96374; 96375; 36415; 82553; 82550; 85025; 80053; 84484; 71045; 93010; A9270; J3360; J1885; J1170

== ENCOUNTER 2018-02-12 11:21 | Observation (INO) | payer MEDICARE, MEDICAID ==
[2018-02-12] MEDS ORDERED: MORPHINE SULFATE 10 MG/ML INJ ONE (12:04)
[2018-02-12] MEDS: MORPHINE SULFATE 10 MG/ML INJ IV PRN ×2 (12:10→20:20)
[2018-02-12] MEDS ORDERED: KETOROLAC TROMETHAMINE INJ/PF 30 MG/1 ML SDV ONE (12:23)
[2018-02-12] MEDS ORDERED: HYDROMORPHONE HCL INJ/PF 2 MG/ML AMPULE ONE ×2 (13:04→17:27)
[2018-02-12] MEDS: RINGERS SOLUTION,LACTATED 1,000 ML IV PRN ×2 (13:07→21:53)
[2018-02-12 13:26] LABS: HEMATOCRIT 39.3 % (36.0-47.0); HEMOGLOBIN 13.5 g/dL (12.0-15.5); MEAN CORPUSCULAR HEMOGLOBIN 29.3 pg (27.0-33.4); MEAN CORPUSCULAR HGB CONC 34.2 g/dL (32.0-36.0); MEAN CORPUSCULAR VOLUME 86 fl (80-97); PLATELET COUNT 269 10^3/uL (150-450); RED BLOOD COUNT 4.59 10^6/uL (3.72-5.28); RED CELL DISTRIBUTION WIDTH 14.1 % (11.5-14.0); WHITE BLOOD COUNT 13.7 10^3/uL (4.0-10.5)
[2018-02-12] MEDS ORDERED: CIPROFLOXACIN 400 MG/D5W RTU 400 MG/200 ML RTUPB IV SCH (14:00)
[2018-02-12] MEDS: NICOTINE 21 MG/24 HR PATCH.TD24 TD SCH (14:17)
[2018-02-12] MEDS ORDERED: ONDANSETRON HCL INJ/PF 4 MG/2 ML SDV ONE ×2 (15:31→17:08)
[2018-02-12] MEDS ORDERED: BUPIVACAINE HCL 0.5%-EPI 1:200000 INJ/PF 30 ML VIAL ONE (17:05)
[2018-02-12] MEDS ORDERED: FENTANYL CITRATE INJ/PF 100 MCG/2 ML AMPUL ONE (17:07)
[2018-02-12] MEDS ORDERED: PROPOFOL INJ 200 MG/20 ML VIAL IV ONE (17:08)
[2018-02-12] MEDS ORDERED: MIDAZOLAM 2 MG/2 ML INJ ONE (17:08)
[2018-02-12] MEDS ORDERED: ACETAMINOPHEN 0 MG/0 ML RTUPB IV ONE (17:08)
[2018-02-12] MEDS: KETOROLAC TROMETHAMINE INJ/PF 30 MG/1 ML SDV IV SCH (17:25)
[2018-02-12] MEDS ORDERED: FENTANYL CITRATE INJ/PF 100 MCG/2 ML AMPUL IV PRN ×3 (18:19)
[2018-02-12] MEDS ORDERED: MEPERIDINE HCL/PF INJ 25 MG/1 ML DISP.SYRIN IV PRN (18:19)
[2018-02-12] MEDS ORDERED: DIPHENHYDRAMINE HCL 50 MG/ML VIAL IV PRN (18:19)
[2018-02-12] MEDS ORDERED: OXYCODONE-ACETAMINOPHEN 5-325 MG TABLET PO PRN ×3 (18:19→19:47)
[2018-02-12] MEDS ORDERED: PROMETHAZINE HCL INJ 25 MG/1 ML VIAL IV PRN ×2 (18:19)
[2018-02-12] MEDS ORDERED: (PENDING PHARMACY ID) (Carisoprodol [Soma] 250 MG) PO PRN (21:29)
[2018-02-12] MEDS: CIPROFLOXACIN HCL 500 MG TABLET PO SCH (21:58)
[2018-02-13] MEDS: KETOROLAC TROMETHAMINE INJ/PF 30 MG/1 ML SDV IV SCH ×2 (00:23→05:39)
[2018-02-13] MEDS: CIPROFLOXACIN HCL 500 MG TABLET PO SCH (09:01)
[2018-02-13] MEDS: NICOTINE 21 MG/24 HR PATCH.TD24 TD SCH (09:02)
[2018-02-13] MEDS ORDERED: HYDROCHLOROTHIAZIDE 25 MG TABLET PO SCH (10:00)
[2018-02-13] MEDS ORDERED: VALSARTAN 160 MG TABLET PO SCH (10:00)
[2018-02-13] MEDS ORDERED: (PENDING PHARMACY ID) (Valsartan/Hydrochlorothiazide [Diovan Hct 320-25 Mg Tablet] 1 TAB) PO SCH (10:00)
--- NOTE | 2018-02-13 11:16 | OPERATIVE REPORT E ---
Operative Report NAME: CADE RODARTE : 1975 AGE: 43Y DATE OF SURGERY: 02/12/2018 ROOM: 530 PREOPERATIVE DIAGNOSIS: Abscess of the right breast. POSTOPERATIVE DIAGNOSIS: Abscess of the right breast. PROCEDURE: Incision and drainage abscess right breast. SURGEON: DEANDRA AHMADI M.D. ANESTHESIA: General. INDICATION: This 43-year-old female who complained of pains along the right breast on the lower outer aspect for the past 2 days. She was seen in the clinic today and sent to the hospital because of severe tenderness along the right breast. DESCRIPTION OF PROCEDURE: After adequate general anesthesia, the patient was placed in supine position and the right lower breast area was then prepped and draped in the usual sterile fashion. Appropriate timeout was then called. Next, there was fluctuation noted of the breast abscess site and this was incised in a horizontal fashion and a joce of purulent material extruded out. Cultures were then obtained. The incision was extended medially and laterally to a distance of about 2.5 cm. Hemostasis was then controlled with the use of cautery primarily along the skin edges. Next, Marcaine with epinephrine was then injected around the abscess site using about 20 mL. The area was subsequently packed with 0.25 inch Iodoform gauze. A sterile dressing was placed over the operative site. Needle, instrument, and sponge count were all correct, and estimated blood loss about 5 mL. DICTATING PHYSICIAN: DEANDRA AHMADI M.D. [id number] PHY#: [id number] ID: [id number] JOB#: [id number] ACCT: [id number] cc:DEANDRA AHMADI M.D. >
[2018-02-13 12:20] VITALS: BP 158/88
--- NOTE | 2018-02-15 03:52 | DISCHARGE SUMMARY E ---
Discharge Summary NAME: CADE RODARTE : 1975 AGE: 43Y ADMITTED: 02/12/2018 DISCHARGED: 02/13/2018 PREOPERATIVE DIAGNOSIS: Abscess right breast. PROCEDURE DONE: Incision and drainage abscess right breast 02/12/18; surgeon Dr. Marquis. HOSPITAL COURSE: This is a 43-year-old female who noted pain along the right breast 2 days prior to admission. She was then seen at the surgical clinic on 02/12/18 and noted to have markedly tender swelling and obvious abscess of the right breast, and was sent to the hospital, where I did an incision and drainage of abscess of the right breast on 02/12/18. Postoperatively, the wound looks good and the packing was removed. There is no indication to place another packing in the wound at this time. Just a dressing over the wound was placed and the patient advised to continue daily showering. She was given a prescription for Cipro 500 mg p.o. twice a day for about 4 days and a dose of Diflucan 200 mg p.o. to be taken after finishing her Cipro. She will be followed up in the surgical clinic in a week. The patient has been [facility] and takes Percocet, which she will be taking for her back and also should take care of the pain along the right breast. DICTATING PHYSICIAN: DEANDRA MARQUIS M.D. [id number] PHY#: [id number] ID: [id number] JOB#: [id number] ACCT: [id number] cc:DEANDRA MARQUIS M.D. >
== END 2018-02-13 12:30 | disposition home or self-care (01) ==
LOC: INTOOBSV 11:31 → 5 11:31 → EDSTATUS 16:15
PROVIDERS: ADMIT Internal Medicine; ATTEND Surgery
PROC: 0H9T0ZZ Drainage of Right Breast, Open Approach (ICD-10-PCS; principal; 2018-02-12 16:15)
DX: N61.1 Abscess of the breast and nipple (principal); M54.9 Dorsalgia, unspecified; F17.200 Nicotine dependence, unspecified, uncomplicated; Z86.73 Personal history of transient ischemic attack (TIA), and cerebral infarction without residual deficits; Z85.41 Personal history of malignant neoplasm of cervix uteri; Z98.890 Other specified postprocedural states
CPT/HCPCS: 36415; 87070; 87205; 85027; 87075; 87077; 10060; G0378 ×2; G0379; J2250; J3490; A9270 ×4; J3010; J1885 ×2; J2270; J1170; J2405; J7120; J2704; J0744; 400; 99214; A6266; J0131

== ENCOUNTER 2018-08-02 18:51 | Observation (INO) | payer MEDICAID, MEDICARE ==
--- NOTE | 2018-08-02 19:46 | ER Document Report ---
ED Medical Screen (RME) - General Chief Complaint: Abscess Stated Complaint: ABSCESS/ARM PIT Time Seen by Provider: 08/02/18 19:44 Primary Care Provider: ADELAIDE THOMAS MD [Primary Care Provider] - Follow up as needed Mode of Arrival: Ambulatory Information source: Patient Notes: 43-year-old female presented to ED for abscess to the right axilla. She states she always has them surgically removed not just I indeed is that does not work. She states she has a history of hydradenitis and has had [facility] remove multiple ones of these in the past. Patient is alert oriented respirations regular unlabored speaking in full sentences. She states she was tried to wait till tomorrow so she got a [facility] office but the pain is too bad so she came to the emergency room. I have greeted and performed a rapid initial assessment of this patient. A comprehensive ED assessment and evaluation of the patient, analysis of test results and completion of medical decision making process will be conducted by an additional ED providers. TRAVEL OUTSIDE OF THE [place] IN LAST 30 DAYS: No - Related Data Allergies/Adverse Reactions: adhesive tape Allergy (Verified 08/02/18 18:55) acetaminophen [From Darvocet-N] Adverse Reaction (Verified 04/19/17 08:35) cyclobenzaprine [From Flexeril] Adverse Reaction (Verified 04/19/17 08:35) ibuprofen Adverse Reaction (Verified 04/19/17 08:36) methocarbamol [From Robaxin] Adverse Reaction (Verified 04/19/17 08:35) naproxen [From Naprosyn] Adverse Reaction (Verified 04/19/17 08:35) propoxyphene [From Darvocet-N] Adverse Reaction (Verified 04/19/17 08:35) sulfamethoxazole [From Bactrim] Adverse Reaction (Verified 04/19/17 08:36) trimethoprim [From Bactrim] Adverse Reaction (Verified 04/19/17 08:36) Past Medical History Pulmonary Medical History: Reports: Hx Asthma Renal/ Medical History: Denies: Hx Peritoneal Dialysis Past Surgical History: Reports: Hx Orthopedic Surgery - back, Other - History of lumbar laminectomies 4 in the mid 1999s, history of hernia - Immunizations History of Influenza Vaccine for 01/2017 - 06/2017 Season: Refused Physical Exam - Vital signs Vitals: Temp Pulse Resp BP Pulse Ox 98.2 F 97 18 166/117 H 100 08/02/18 19:01 08/02/18 19:01 08/02/18 19:01 08/02/18 19:01 08/02/18 19:01 Course - Vital Signs Vital signs: Temp Pulse Resp BP Pulse Ox 98.2 F 97 18 166/117 H 100 08/02/18 19:01 08/02/18 19:01 08/02/18 19:01 08/02/18 19:01 08/02/18 19:01 Doctor's Discharge - Discharge Referrals: ADELAIDE THOMAS MD [Primary Care Provider] - Follow up as needed
[2018-08-02 20:30] LABS: ABSOLUTE EOSINOPHILS # (AUTO) 0.1 10^3/uL (0.0-0.6); ABSOLUTE LYMPHOCYTES (AUTO) 3.8 10^3/uL (0.5-4.7); ABSOLUTE MONOCYTES (AUTO) 0.9 10^3/uL (0.1-1.4); ABSOLUTE NEUT (AUTO) 9.4 10^3/uL (1.7-8.2); BASOPHILS % (AUTO) 0.3 % (0-2); EOSINOPHILS % (AUTO) 0.9 % (0-6); HEMATOCRIT 38.5 % (36.0-47.0); HEMOGLOBIN 12.8 g/dL (12.0-15.5); LYMPHOCYTES % (AUTO) 26.6 % (13-45); MEAN CORPUSCULAR HEMOGLOBIN 28.6 pg (27.0-33.4); MEAN CORPUSCULAR HGB CONC 33.2 g/dL (32.0-36.0); MEAN CORPUSCULAR VOLUME 86 fl (80-97); MONOCYTES % (AUTO) 6.5 % (3-13); PLATELET COUNT 243 10^3/uL (150-450); RED BLOOD COUNT 4.48 10^6/uL (3.72-5.28); RED CELL DISTRIBUTION WIDTH 14.1 % (11.5-14.0); SEGMENTED NEUTROPHILS % (AUTO) 65.7 % (42-78); TOTAL CELLS COUNTED % (AUTO) 100 %; WHITE BLOOD COUNT 14.3 10^3/uL (4.0-10.5)
[2018-08-02 20:48] LABS: ALANINE AMINOTRANSFERASE 20 U/L (9-52); ALBUMIN 4.2 g/dL (3.5-5.0); ALKALINE PHOSPHATASE 75 U/L (38-126); ANION GAP 11 (5-19); ASPARTATE AMINO TRANSFERASE 13 U/L (14-36); BILIRUBIN,DIRECT 0.2 mg/dL (0.0-0.4); BILIRUBIN,TOTAL 0.3 mg/dL (0.2-1.3); BLOOD UREA NITROGEN 12 mg/dL (7-20); CALCIUM 9.7 mg/dL (8.4-10.2); CARBON DIOXIDE 25 mmol/L (22-30); CHLORIDE 106 mmol/L (98-107); GLUCOSE 94 mg/dL (75-110); POTASSIUM 4.2 mmol/L (3.6-5.0); TOTAL PROTEIN 7.2 g/dL (6.3-8.2)
--- NOTE | 2018-08-02 21:17 | ER Document Report ---
ED Skin Rash/Insect Bite/Abscs - General Chief Complaint: Abscess Stated Complaint: ABSCESS/ARM PIT Time Seen by Provider: 08/02/18 19:44 Primary Care Provider: ADELAIDE THOMAS MD [ACTIVE STAFF] - Follow up as needed Mode of Arrival: Ambulatory TRAVEL OUTSIDE OF THE [place] IN LAST 30 DAYS: No - HPI Notes: Patient is a 43-year-old female who presents to the emergency department with a chief complaint of abscess underneath the right axilla since Friday. Patient states having history of hidradenitis and multiple incision and drainages to this area. Patient denies a history of MRSA. Patient reports extreme pain to this area that radiates into the right breast. Pain is present at rest as well as with movement of the arm. Patient denies drainage or discharge from the site patient does not have a history of diabetes. Patient denies fever. Does report chills. Patient does report a history of hypertension, asthma. Patient states she is noncompliant with her medications for blood pressure. - Related Data Allergies/Adverse Reactions: adhesive tape Allergy (Verified 08/02/18 18:55) cyclobenzaprine [From Flexeril] Adverse Reaction (Verified 04/19/17 08:35) ibuprofen Adverse Reaction (Verified 04/19/17 08:36) methocarbamol [From Robaxin] Adverse Reaction (Verified 04/19/17 08:35) naproxen [From Naprosyn] Adverse Reaction (Verified 04/19/17 08:35) propoxyphene [From Darvocet-N] Adverse Reaction (Verified 04/19/17 08:35) sulfamethoxazole [From Bactrim] Adverse Reaction (Verified 04/19/17 08:36) trimethoprim [From Bactrim] Adverse Reaction (Verified 04/19/17 08:36) Past Medical History - General Information source: Patient - Social History Smoking Status: Current Every Day Smoker Cigarette use (# per day): Yes Smoking Education Provided: Yes Frequency of alcohol use: None Drug Abuse: None Lives with: Spouse/Significant other Family History: Reviewed & Not Pertinent Patient has suicidal ideation: No Patient has homicidal ideation: No - Past Medical History Cardiac Medical History: Reports: Hx Hypertension Pulmonary Medical History: Reports: Hx Asthma EENT Medical History: Reports: None Neurological Medical History: Reports: Other Other: Hx. TIA Endocrine Medical History: Reports: None Renal/ Medical History: Reports: None. Denies: Hx Peritoneal Dialysis Malignancy Medical History: Reports: None GI Medical History: Reports: None Musculoskeletal Medical History: Reports None Other: Hx. Hidradenitis, multiple abscesses to right breast and right axilla. Past Surgical History: Reports: Hx Orthopedic Surgery - back, Other - History of lumbar laminectomies 4 in the mid , history of hernia Physical Exam - Vital signs Vitals: Temp Pulse Resp BP Pulse Ox 98.2 F 97 18 166/117 H 100 08/02/18 19:01 08/02/18 19:01 08/02/18 19:01 08/02/18 19:01 08/02/18 19:01 - Notes Notes: GENERAL: Well-appearing, well-nourished and in no acute distress. HEAD: Atraumatic, normocephalic. EYES: Pupils equal round and reactive to light, extraocular movements intact, sclera anicteric, conjunctiva are normal. ENT: TMs normal, nares patent, oropharynx clear without exudates. Moist mucous membranes. NECK: Normal range of motion, supple without lymphadenopathy or JVD. LUNGS: Breath sounds clear to auscultation bilaterally and equal. No wheezes rales or rhonchi. HEART: Regular rate and rhythm without murmurs, rubs or gallops. ABDOMEN: Soft, nontender, normoactive bowel sounds. No guarding, no rebound. No masses appreciated. EXTREMITIES: Normal range of motion, no pitting or edema. No clubbing or cyano sis. Patient has a 8x5 cm area of erthyema underneath the right axilla that is extremely tender to touch and firm. No drainage. No obvious surrounding cellulitis. The abscess does not appear to spread into the breast. NEUROLOGICAL: Cranial nerves II through XII grossly intact. Normal speech, n ormal gait. PSYCH: Normal mood, normal affect. SKIN: Warm, Dry, normal turgor, no rashes or lesions noted. Course - Re-evaluation Re-evalutation: 08/02/18 21:14 Patient has 8 x 5 cm area underneath the right axilla returning for an abscess. The area is warm and extremely tender to touch. Continue to palpate the area patient kept pushing my arm away. Patient informed that usually for hidradenitis and abscesses to this area we do numb the area with local anesthetic and incise and drain the area. Patient states that she will not let us do this and that she needs to be completely asleep with anesthesia. Patient continues to repeat multiple times that she is not going to let us numb of the area and cut it open in the emergency department. Patient does not have a history of diabetes, basic lab work ordered in triage. Results so far show a white count of 14.1. Chemistry pending. 08/02/18 21:[address] Marquis who will come to the emergency department and see patient. 08/02/18 22:30 Dr. Marquis to admit. Patient to be n.p.o. after midnight. We will plan for incision and drainage of right axilla abscess tomorrow. - Vital Signs Vital signs: Temp Pulse Resp BP Pulse Ox 98.1 F 72 15 151/86 H 100 08/02/18 22:14 08/02/18 22:14 08/02/18 22:14 08/02/18 22:14 08/02/18 22:14 - Laboratory Result Diagrams: 08/02/18 19:58 08/02/18 19:58 Laboratory results interpreted by me: 08/02/18 08/02/18 19:58 19:58 WBC 14.3 H RDW 14.1 H Absolute Neutrophils 9.4 H AST 13 L 08/02/18 22:33 Patient does have a white count of 14.3. Chemistry is unremarkable. Discharge - Discharge Clinical Impression: Abscess of axilla, right, Chills (without fever) Condition: Stable Disposition: ADMITTED OBSERVATION Admitting Provider: Surgicalist Unit Admitted: Surgical Floor Referrals: ADELAIDE THOMAS MD [ACTIVE STAFF] - Follow up as needed
[2018-08-02] MEDS ORDERED: OXYCODONE-ACETAMINOPHEN 5-325 MG TABLET PO ONE (21:43)
--- NOTE | 2018-08-02 22:12 | PDOC H&P ---
History of Present Illness Admission Date/PCP: MARCELINO BARRY DO Patient complains of: right axillary pains History of Present Illness: CADE JONES is a 43 year old female with history of hydradenitis c/o right axilla pains since 4 days ago and getting worse. This apparently was drained about 2 years ago in [place]. Admits to having fever and chills. She could barely elevate her right arm because of excruciating pain. Past Medical History Cardiac Medical History: Reports: Hypertension Pulmonary Medical History: Reports: Asthma Past Surgical History Past Surgical History: Reports: Orthopedic Surgery - back, Other - History of lumbar laminectomies 4 in the mid 1999s, history of hernia Social History Smoking Status: Current Every Day Smoker Frequency of Alcohol Use: Occasional Hx Recreational Drug Use: No Family History Family History: Reviewed & Not Pertinent Parental Family History Reviewed: Yes - no DM Children Family History Reviewed: No Sibling(s) Family History Reviewed.: No Medication/Allergy Home Medications: Carisoprodol [Soma] 250 mg PO BIDP PRN 02/12/18 Oxycodone HCl/Acetaminophen [Percocet 10-325 mg Tablet] 1 tab PO Q4H 02/12/18 Valsartan/Hydrochlorothiazide [Diovan Hct 320-25 mg Tablet] 1 tab PO DAILY 02/12/18 Allergies/Adverse Reactions: adhesive tape Allergy (Verified 08/02/18 18:55) cyclobenzaprine [From Flexeril] Adverse Reaction (Verified 04/19/17 08:35) ibuprofen Adverse Reaction (Verified 04/19/17 08:36) methocarbamol [From Robaxin] Adverse Reaction (Verified 04/19/17 08:35) naproxen [From Naprosyn] Adverse Reaction (Verified 04/19/17 08:35) propoxyphene [From Darvocet-N] Adverse Reaction (Verified 04/19/17 08:35) sulfamethoxazole [From Bactrim] Adverse Reaction (Verified 04/19/17 08:36) trimethoprim [From Bactrim] Adverse Reaction (Verified 04/19/17 08:36) Review of Systems Constitutional: PRESENT: as per HPI Eyes: PRESENT: other - no visual/hearing changes Cardiovascular: PRESENT: other - no chest pain/cough Gastrointestinal: PRESENT: other - no pains Musculoskeletal: PRESENT: back pain Physical Exam Vital Signs: Temp Pulse Resp BP Pulse Ox 98.2 F 97 18 166/117 H 100 08/02/18 19:01 08/02/18 19:01 08/02/18 19:01 08/02/18 19:01 08/02/18 19:01 Intake & Output 08/01/18 08/02/18 08/03/18 06:59 06:59 06:59 Weight 87 kg General appearance: PRESENT: severe distress Head exam: PRESENT: atraumatic Eye exam: PRESENT: conjunctiva pink Mouth exam: PRESENT: moist Neck exam: PRESENT: full ROM Respiratory exam: PRESENT: clear to auscultation gurpreet Cardiovascular exam: PRESENT: RRR Pulses: PRESENT: normal radial pulses Vascular exam: PRESENT: normal capillary refill GI/Abdominal exam: PRESENT: soft Rectal exam: PRESENT: deferred Extremities exam: PRESENT: tenderness - exquisite tendr swelling right axilla Neurological exam: PRESENT: alert, oriented to person, oriented to place, oriented to time, oriented to situation Psychiatric exam: PRESENT: appropriate affect Skin exam: PRESENT: normal color, warm Results Laboratory Results: 08/02/18 19:58 08/02/18 19:58 08/02/18 08/02/18 08/02/18 19:58 19:58 19:58 WBC 14.3 H RBC 4.48 Hgb 12.8 Hct 38.5 MCV 86 MCH 28.6 MCHC 33.2 RDW 14.1 H Plt Count 243 Seg Neutrophils % 65.7 Lymphocytes % 26.6 Monocytes % 6.5 Eosinophils % 0.9 Basophils % 0.3 Absolute Neutrophils 9.4 H Absolute Lymphocytes 3.8 Absolute Monocytes 0.9 Absolute Eosinophils 0.1 Absolute Basophils 0.0 Sodium 142.0 Potassium 4.2 Chloride 106 Carbon Dioxide 25 Anion Gap 11 BUN 12 Creatinine 0.79 Est GFR ( Amer) > 60 Est GFR (Non-Af Amer) > 60 Glucose 94 Calcium 9.7 Total Bilirubin 0.3 AST 13 L ALT 20 Alkaline Phosphatase 75 Total Protein 7.2 Albumin 4.2 Serum HCG, Qual NEGATIVE Assessment & Plan - Diagnosis (1) Abscess of right axilla Is this a current diagnosis for this admission?: Yes (2) Narcotic dependency, continuous Is this a current diagnosis for this admission?: Yes (3) Smoker Is this a current diagnosis for this admission?: Yes - Time Time Spent: 30 to 50 Minutes - Inpatient Certification Medical Necessity: Need For IV Fluids, Need for Pain Control, Need for IV Anti biotics, Need for Surgery - Plan Summary Plan Summary: Had food at 3:30 today. Will admit and keep npo after midnite for I&D right axilla abscess in am Start IV antibiotics
[2018-08-02] MEDS ORDERED: MORPHINE SULFATE 10 MG/ML INJ IV PRN (22:23)
[2018-08-02] MEDS ORDERED: PIPERACILLIN/TAZOBACTAM 3.375 GM VIAL IV SCH (22:30)
[2018-08-02] MEDS ORDERED: ONDANSETRON HCL INJ/PF 4 MG/2 ML SDV IV SCH (22:30)
[2018-08-02] MEDS: DEXTROSE 5%-LACTATED RINGERS 1,000 ML IV PRN (22:48)
[2018-08-02] MEDS: KETOROLAC TROMETHAMINE INJ/PF 30 MG/1 ML SDV IV SCH (23:48)
[2018-08-03] MEDS ORDERED: ONDANSETRON HCL INJ/PF 4 MG/2 ML SDV IV STA (00:39)
[2018-08-03] MEDS ORDERED: PIPERACILLIN/TAZOBACTAM 3.375 GM VIAL IV PRN ×2 (00:42→06:40)
[2018-08-03] MEDS ORDERED: KETOROLAC TROMETHAMINE INJ/PF 30 MG/1 ML SDV IV ONE (00:45)
[2018-08-03] MEDS ORDERED: PIPERACILLIN SODIUM/TAZOBACTAM 3.375 GM in NORMAL SALINE 100 ML IV ONE ×2 (00:45→06:45)
[2018-08-03] MEDS ORDERED: PIPERACILLIN/TAZOBACTAM 3.375 GM VIAL IV ONE (00:47)
[2018-08-03] MEDS: DEXTROSE 5%-LACTATED RINGERS 1,000 ML IV PRN ×2 (05:38→13:28)
[2018-08-03] MEDS: KETOROLAC TROMETHAMINE INJ/PF 30 MG/1 ML SDV IV SCH ×3 (06:00→23:07)
[2018-08-03] MEDS ORDERED: PIPERACILLIN/TAZOBACTAM 3.375 GM VIAL IV SCH (12:00)
[2018-08-03] MEDS: PIPERACILLIN SODIUM/TAZOBACTAM 3.375 GM in NORMAL SALINE 100 ML IV SCH ×3 (12:09→23:07)
--- NOTE | 2018-08-03 12:51 | PDOC PROGRESS REPORT ---
Subjective Progress Note for:: 08/03/18 Subjective:: Still complaining of severe pain right ankle Reason For Visit: ABSCESS RIGHT AXILLA Physical Exam Vital Signs: Temp Pulse Resp BP Pulse Ox 97.9 F 65 16 152/90 H 100 08/03/18 11:54 08/03/18 11:54 08/03/18 11:54 08/03/18 11:54 08/03/18 11:54 Intake & Output 08/02/18 08/03/18 08/04/18 06:59 06:59 06:59 Intake Total 1000 Balance 1000 Weight 88.2 kg General appearance: PRESENT: mild distress Musculoskeletal exam: PRESENT: other - Right axilla swollen, puffy extremely tender. Difficult to ascertain level of cellulitis due to dark complexion. Results Laboratory Results: 08/02/18 19:58 08/02/18 19:58 08/02/18 08/02/18 08/02/18 19:58 19:58 19:58 WBC 14.3 H RBC 4.48 Hgb 12.8 Hct 38.5 MCV 86 MCH 28.6 MCHC 33.2 RDW 14.1 H Plt Count 243 Seg Neutrophils % 65.7 Lymphocytes % 26.6 Monocytes % 6.5 Eosinophils % 0.9 Basophils % 0.3 Absolute Neutrophils 9.4 H Absolute Lymphocytes 3.8 Absolute Monocytes 0.9 Absolute Eosinophils 0.1 Absolute Basophils 0.0 Sodium 142.0 Potassium 4.2 Chloride 106 Carbon Dioxide 25 Anion Gap 11 BUN 12 Creatinine 0.79 Est GFR ( Amer) > 60 Est GFR (Non-Af Amer) > 60 Glucose 94 Calcium 9.7 Total Bilirubin 0.3 AST 13 L ALT 20 Alkaline Phosphatase 75 Total Protein 7.2 Albumin 4.2 Serum HCG, Qual NEGATIVE Assessment & Plan - Diagnosis (1) Abscess of right axilla Is this a current diagnosis for this admission?: Yes Plan: Recommendations: Proceed with operative drainage; I informed the patient that her case may be delayed due to unavailability of operating room space.
[2018-08-03] MEDS ORDERED: MORPHINE SULFATE 10 MG/ML INJ IV ONE (13:00)
[2018-08-03] MEDS ORDERED: BUPIVACAINE HCL 0.5 % INJ/PF 30 ML SDV ONE (15:43)
[2018-08-03] MEDS ORDERED: LIDOCAINE 0.5% INJ-PF (5 MG/ML) 50 ML SDV ONE (15:43)
[2018-08-03] MEDS ORDERED: FENTANYL CITRATE INJ/PF 100 MCG/2 ML AMPUL ONE (19:32)
[2018-08-03] MEDS ORDERED: DEXAMETHASONE SOD PHOSPHATE INJ 4 MG/1 ML VIAL ONE (19:32)
[2018-08-03] MEDS ORDERED: MIDAZOLAM 2 MG/2 ML INJ ONE (19:32)
[2018-08-03] MEDS ORDERED: PROPOFOL INJ 200 MG/20 ML VIAL IV ONE (19:32)
[2018-08-03] MEDS ORDERED: ONDANSETRON HCL INJ/PF 4 MG/2 ML SDV ONE (19:32)
[2018-08-03] MEDS ORDERED: LIDOCAINE 2% INJ-PF (100 MG/5 ML) SYRINGE ONE (19:32)
--- NOTE | 2018-08-03 20:20 | Operative Report ---
Operative Report DATE OF SURGERY: 08/03/18 PREOPERATIVE DIAGNOSIS: Right axillary abscess POSTOPERATIVE DIAGNOSIS: Same OPERATION: Excisional debridement of right axillary abscess including skin subcutaneous tissue, irrigation of wound and packing SURGEON: HAN DALLAS ANESTHESIA: GA TISSUE REMOVED OR ALTERED: Skin and subcutaneous tissue disposed of COMPLICATIONS: None ESTIMATED BLOOD LOSS: Minimal INTRAOPERATIVE FINDINGS: See below PROCEDURE: Patient was taken from the preop holding area to the main operating room where LMA general anesthesia was used. Right arm was abducted, right axilla was shaved, prepped and draped sterile fashion. Surgical plan surgical timeout conducted. A 15 blade was used to incise the right axilla towards the chest wall, for a skin ellipse of approximately 1 cm diameter by 5 cm in length. The pus was immediately evacuated, and sent for culture and sensitivity and Gram staining. Loculations were easily broken up with the index finger. There was no tracking of the abscess cavity. The infection did not seem to be typical of an MRSA infection. Wound was irrigated several times. Then the wound was packed open with three quarters of a bottle of 1/2 inch iodoform. Patient tolerated procedure well, extubated, and taken recovery in stable condition.
[2018-08-03] MEDS ORDERED: DIPHENHYDRAMINE HCL 50 MG/ML VIAL IV PRN (20:23)
[2018-08-03] MEDS ORDERED: MEPERIDINE HCL/PF INJ 25 MG/1 ML DISP.SYRIN IV PRN (20:23)
[2018-08-03] MEDS ORDERED: ONDANSETRON HCL INJ/PF 4 MG/2 ML SDV IV PRN (20:23)
[2018-08-03] MEDS ORDERED: OXYCODONE-ACETAMINOPHEN 5-325 MG TABLET PO PRN ×3 (20:23→23:28)
[2018-08-03] MEDS ORDERED: PROMETHAZINE HCL INJ 25 MG/1 ML VIAL IV PRN ×2 (20:23)
[2018-08-03] MEDS ORDERED: FENTANYL CITRATE INJ/PF 100 MCG/2 ML AMPUL IV PRN ×3 (20:23)
[2018-08-03] MEDS: FENTANYL CITRATE INJ/PF 100 MCG/2 ML AMPUL ONE ×2 (20:35→20:40)
[2018-08-03] MEDS: OXYCODONE-ACETAMINOPHEN 5-325 MG TABLET PO PRN (23:42)
[2018-08-04] MEDS: OXYCODONE-ACETAMINOPHEN 5-325 MG TABLET PO PRN ×2 (03:45→08:27)
[2018-08-04] MEDS: PIPERACILLIN SODIUM/TAZOBACTAM 3.375 GM in NORMAL SALINE 100 ML IV SCH (05:29)
--- NOTE | 2018-08-04 09:04 | PDOC DISCHARGE SUMMARY ---
General - Admit/Disc Date/PCP Admission Date/Primary Care Provider: 08/02/18 22:52 MARCELINO BARRY, Discharge Date: 08/04/18 - Discharge Diagnosis (1) Abscess of right axilla Is this a current diagnosis for this admission?: Yes - Additional Information Resuscitation Status: Full Code Discharge Diet: As Tolerated Discharge Activity: Balance Activity w/Rest Home Medications: Carisoprodol [Soma] 250 mg PO BIDP PRN 02/12/18 Oxycodone HCl/Acetaminophen [Percocet 10-325 mg Tablet] 1 tab PO Q6HP PRN MDD 5 TABS 02/12/18 Medroxyprogesterone Acetate 150 mg IM .[id number] MDD due in 08/03/18 History of Present Illness History of Present Illness: CADE JONES is a 43 year old female admitted with a right axillary abscess. The patient was admitted to the hospital and started on intravenous antibiotics. Hospital Course Hospital Course: On hospital day #2 the patient was taken to the operating room for incision and drainage of a right axillary abscess. On hospital day #3, the patient was doing well. She was afebrile. Her dressing was changed. Her wound appeared clean, without active purulence. The patient was allowed to shower. She was tolerating a diet and ambulating. At this time it was felt that she had reached maximal hospital benefit, and was fit for discharge. Physical Exam Vital Signs: Temp Pulse Resp BP Pulse Ox 98.2 F 84 18 164/76 H 99 08/04/18 08:02 08/04/18 08:02 08/04/18 08:02 08/04/18 08:02 08/04/18 08:02 Intake & Output 08/03/18 08/04/18 08/05/18 06:59 06:59 06:59 Intake Total 1000 2390 Output Total 110 Balance 1000 2280 Weight 88.2 kg 90.1 kg Results Laboratory Results: 08/02/18 19:58 08/02/18 19:58 Qualifiers - * PATIENT BEING DISCHARGED WITH ANY OF THE FOLLOWING DIAGNOSIS: No Plan Discharge Plan: Discharge home. Diet as tolerated. Activity: Nonstrenuous. Follow-up with [place] [facility] in 7 to 10 days. Doxycycline 100 mg p.o. twice daily. Ranitidine 300 mg p.o. daily. Ibuprofen 800 mg p.o. 3 times daily with meals. Diflucan 100 mg p.o. daily. [place] 5/3 2 5 mg p.o. every 6 hours as needed for pain. Okay to shower. Dry dressing to right axilla twice daily and as needed. Time Spent: Less than 30 Minutes
[2018-08-04 09:46] VITALS: BP 150/79
== END 2018-08-04 09:55 | disposition home or self-care (01) ==
LOC: ER 18:51 → EH 22:52 → 2N 08-03 00:02
PROVIDERS: ATTEND Surgery
PROC: 0JBD0ZZ Excision of Right Upper Arm Subcutaneous Tissue and Fascia, Open Approach (ICD-10-PCS; principal; 2018-08-03 17:15)
DX: L02.411 Cutaneous abscess of right axilla (principal); I10 Essential (primary) hypertension; F17.200 Nicotine dependence, unspecified, uncomplicated; M54.9 Dorsalgia, unspecified; F11.20 Opioid dependence, uncomplicated; M25.571 Pain in right ankle and joints of right foot; E11.9 Type 2 diabetes mellitus without complications; Z91.14 Patient's other noncompliance with medication regimen; Z87.2 Personal history of diseases of the skin and subcutaneous tissue; Z98.890 Other specified postprocedural states
CPT/HCPCS: 11000; 99284; 36415; 87070; 87205; 84703; 85025; 87075; 87077; 80053; 87186; 83036; G0378 ×3; J2250; J1100; J3010; J2001; J1885; J2270; A9270 ×3; J2405; J2704; J2543 ×2; 400; J3490; J7050; J7121

== ENCOUNTER 2018-12-29 16:15 | Observation (INO) | payer MEDICARE ==
[~2018-12-29 16:15] MED LIST: DEXAMETHASONE SOD PHOSPHATE INJ 4 MG/1 ML VIAL ONE; ONDANSETRON HCL INJ/PF 4 MG/2 ML SDV ONE
[2018-12-29] MEDS ORDERED: DEXTROSE 5%-LACTATED RINGERS 1,000 ML IV PRN (17:40)
[2018-12-29] MEDS ORDERED: CEFAZOLIN 1 GM/D5W RTU 1 GM/50 ML RTUPB IV PRN (18:15)
[2018-12-29 18:24] LABS: ABSOLUTE BASOPHILS # (AUTO) 0.1 10^3/uL (0.0-0.2); ABSOLUTE EOSINOPHILS # (AUTO) 0.1 10^3/uL (0.0-0.6); ABSOLUTE MONOCYTES (AUTO) 0.8 10^3/uL (0.1-1.4); ABSOLUTE NEUT (AUTO) 9.2 10^3/uL (1.7-8.2); BASOPHILS % (AUTO) 0.5 % (0-2); HEMATOCRIT 38.4 % (36.0-47.0); HEMOGLOBIN 12.5 g/dL (12.0-15.5); LYMPHOCYTES % (AUTO) 28.3 % (13-45); MEAN CORPUSCULAR HGB CONC 32.5 g/dL (32.0-36.0); MEAN CORPUSCULAR VOLUME 86 fl (80-97); MONOCYTES % (AUTO) 5.5 % (3-13); PLATELET COUNT 211 10^3/uL (150-450); RED BLOOD COUNT 4.46 10^6/uL (3.72-5.28); RED CELL DISTRIBUTION WIDTH 14.6 % (11.5-14.0); SEGMENTED NEUTROPHILS % (AUTO) 64.7 % (42-78); TOTAL CELLS COUNTED % (AUTO) 100 %; WHITE BLOOD COUNT 14.2 10^3/uL (4.0-10.5)
[2018-12-29] MEDS ORDERED: ACETAMINOPHEN 1,000 MG/100 ML RTUPB IV ONE (18:45)
[2018-12-29] MEDS ORDERED: BUPIVACAINE HCL 0.25% /EPINEPHRINE INJ/PF 30 ML SDV ONE (19:19)
[2018-12-29] MEDS ORDERED: FENTANYL CITRATE INJ/PF 100 MCG/2 ML AMPUL IV PRN ×3 (19:48)
[2018-12-29] MEDS ORDERED: DIPHENHYDRAMINE HCL 50 MG/ML VIAL IV PRN (19:48)
[2018-12-29] MEDS ORDERED: PROMETHAZINE HCL INJ 25 MG/1 ML VIAL IV PRN (19:48)
[2018-12-29] MEDS ORDERED: MORPHINE SULFATE 10 MG/ML INJ IV PRN (19:48)
[2018-12-29] MEDS ORDERED: MEPERIDINE HCL/PF INJ 25 MG/1 ML DISP.SYRIN IV PRN (19:48)
--- NOTE | 2018-12-29 20:18 | Operative Report ---
Operative Report DATE OF SURGERY: 12/29/18 PREOPERATIVE DIAGNOSIS: Abscess right breast POSTOPERATIVE DIAGNOSIS: 3 small superficial abscesses of the right breast OPERATION: Incision and drainage of 3 small abscesses of the right breast SURGEON: DEANDRA AHMADI ANESTHESIA: GA TISSUE REMOVED OR ALTERED: Pus from abscess COMPLICATIONS: None ESTIMATED BLOOD LOSS: 2 cc QUANTITATIVE BLOOD LOSS: 2 INTRAOPERATIVE FINDINGS: 1 abscess with about 1 cc of pus and appears superficial superficial. 2 other smaller abscess with appears more of hidradenitis with small amount of purulent material PROCEDURE: After general anesthesia patient was placed in supine position in the right breast prepped and draped in the usual sterile fashion with the right arm extended. An appropriate timeout was then called. Next a transverse incision made about 1 cm on the inferior lateral aspect of the breast. This pus extruded out and specimen obtained for culture to smaller areas of firmness were then incised and small amount of purulent material squeezed out. All of this abscesses appears to be relatively superficial in the subcutaneous area. One area was incised but no purulent material noted. All the skin incisions were then irrigated with saline solution. They were then packed with quarter inch iodoform gauze. 4 x 4's and ABD pads were used as dressings. Areas of abscesses appears to be related to hidradenitis rather than a angélica breast mass abscess. Patient tolerated procedure well. She was then extubated and transferred to PACU in satisfactory condition.
[2018-12-29] MEDS ORDERED: FENTANYL CITRATE INJ/PF 100 MCG/2 ML AMPUL ONE (20:22)
--- NOTE | 2018-12-29 20:24 | PDOC H&P ---
History of Present Illness Admission Date/PCP: 12/29/18 16:15 MARCELINO BARRY DO Patient complains of: Pains along the right breast History of Present Illness: CADE JONES is a 43 year old female with known history of hydradenitis complaining of pains along the right breast for the past few days. Patient was seen in the surgical clinic by Dr. Betancur today and referred for I&D and debridement of right breast abscess. Patient denies any chills nor fever. Patient a history of 4 back surgeries and on chronic pain medication in the form of Percocet. Past Medical History Cardiac Medical History: Reports: Hypertension Pulmonary Medical History: Reports: Asthma Psychiatric Medical History: Reports: Depression Past Surgical History Past Surgical History: Reports: Orthopedic Surgery - back, Other - History of lumbar laminectomies 4 in the mid , history of hernia Social History Smoking Status: Current Every Day Smoker Number of Years Smokin Last Time Smoked: 12/29/18 Frequency of Alcohol Use: Social Hx Recreational Drug Use: No Drugs: None Hx Prescription Drug Abuse: No - Advance Directive Resuscitation Status: Full Code Family History Family History: Reviewed & Not Pertinent Parental Family History Reviewed: Yes Children Family History Reviewed: No Sibling(s) Family History Reviewed.: No Medication/Allergy Home Medications: Albuterol Sulfate [Ventolin 0.083% Neb 2.5 mg/3 ml Ampul] 1 vial NEB ASDIR PRN 12/29/18 Albuterol Sulfate [Ventolin Hfa 8 gm Mdi (1 Mdi/ER Disp)] 1 puff IH ASDIR PRN 12/29/18 Carisoprodol [Soma] 250 mg PO QHS 12/29/18 Oxycodone HCl/Acetaminophen [Percocet 10-325 Mg Tablet] 1 each PO Q6HP PRN 12/29/18 Allergies/Adverse Reactions: adhesive tape Allergy (Verified 08/02/18 18:55) ketorolac [From Toradol] Allergy (Verified 12/29/18 17:33) tramadol Allergy (Verified 12/29/18 17:33) cyclobenzaprine [From Flexeril] Adverse Reaction (Verified 04/19/17 08:35) ibuprofen Adverse Reaction (Verified 04/19/17 08:36) methocarbamol [From Robaxin] Adverse Reaction (Verified 04/19/17 08:35) naproxen [From Naprosyn] Adverse Reaction (Verified 04/19/17 08:35) propoxyphene [From Darvocet-N] Adverse Reaction (Verified 04/19/17 08:35) sulfamethoxazole [From Bactrim] Adverse Reaction (Verified 04/19/17 08:36) trimethoprim [From Bactrim] Adverse Reaction (Verified 04/19/17 08:36) Review of Systems Constitutional: PRESENT: as per HPI Integumentary: PRESENT: other - Market tenderness along the inferior aspect of the right breast where there is some inflammation noted Physical Exam Vital Signs: Temp Pulse Resp BP Pulse Ox 99.0 F 89 16 174/102 H 100 12/29/18 18:41 12/29/18 18:41 12/29/18 18:41 12/29/18 18:41 12/29/18 18:41 Intake & Output 12/28/18 12/29/18 12/30/18 06:59 06:59 06:59 Weight 90.2 kg General appearance: PRESENT: mild distress Head exam: PRESENT: atraumatic Neck exam: PRESENT: full ROM Respiratory exam: PRESENT: clear to auscultation gurpreet Cardiovascular exam: PRESENT: RRR Pulses: PRESENT: normal radial pulses Vascular exam: PRESENT: normal capillary refill GI/Abdominal exam: PRESENT: soft Rectal exam: PRESENT: deferred Skin exam: PRESENT: warm - And tender right lower breast Results Laboratory Results: 12/29/18 17:46 12/29/18 17:46 WBC 14.2 H RBC 4.46 Hgb 12.5 Hct 38.4 MCV 86 MCH 28.0 MCHC 32.5 RDW 14.6 H Plt Count 211 Seg Neutrophils % 64.7 Assessment & Plan - Diagnosis (1) Abscess of right breast Is this a current diagnosis for this admission?: Yes (2) Narcotic dependency, continuous Is this a current diagnosis for this admission?: Yes (3) Smoker Is this a current diagnosis for this admission?: Yes - Time Time Spent: 30 to 50 Minutes - Plan Summary Plan Summary: For I&D and debridement of right breast abscess. Start IV antibiotics Possible discharge on p.o. antibiotics after surgery
[2018-12-29] MEDS ORDERED: OXYCODONE-ACETAMINOPHEN 5-325 MG TABLET PO PRN (20:59)
[2018-12-29] MEDS ORDERED: PIPERACILLIN SODIUM/TAZOBACTAM 3.375 GM in NORMAL SALINE 100 ML IV SCH (22:00)
[2018-12-29 22:37] VITALS: BP 167/84
[2018-12-30] MEDS ORDERED: PIPERACILLIN/TAZOBACTAM 3.375 GM VIAL IV SCH
--- NOTE | 2018-12-31 22:10 | PDOC DISCHARGE SUMMARY ---
General - Admit/Disc Date/PCP Admission Date/Primary Care Provider: 12/29/18 16:15 MARCELINO BARRY, Discharge Date: 12/29/18 - Discharge Diagnosis Final Diagnosis: Abscesses right breast x3 - Assessment Summary: 43-year-old female complaining of pains along the right breast for about a week. She was seen at the clinic on 12/29/2018 and subsequently sent to the hospital for admission and for drainage of right breast abscess. Patient underwent incision and drainage of 3 small abscesses along the right breast on 12/29/[address] Marquis. Small amount of packing using quarter inch iodoform gauze for all the abscess this was done. was instructed to remove the packing the next day and patient can shower and wash the right breast with soap and water on a daily basis. She was she was then discharged several hours after the surgery on p.o. clindamycin. She can take Percocet as a form of medication for her right breast pains as well as for her chronic back pains. She has been taking her Percocet and her a pain management doctor. Patient to be followed up in the surgical clinic in 2 weeks - Additional Information Resuscitation Status: Full Code Discharge Diet: As Tolerated Discharge Activity: Activity As Tolerated, Slowly Increase Activity Referrals: [facility] [Provider Group] - 01/08/19 10:30 am (S/P ABSCESS RIGHT BREAST) Home Medications: Albuterol Sulfate [Ventolin 0.083% Neb 2.5 mg/3 ml Ampul] 1 vial NEB ASDIR PRN 12/29/18 Albuterol Sulfate [Ventolin Hfa 8 gm Mdi (1 Mdi/ER Disp)] 1 puff IH ASDIR PRN 12/29/18 Carisoprodol [Soma] 250 mg PO QHS 12/29/18 Oxycodone HCl/Acetaminophen [Percocet 10-325 Mg Tablet] 1 each PO Q6HP PRN 12/29/18 Physical Exam Vital Signs: Temp Pulse Resp BP Pulse Ox 98.7 F 77 16 167/84 H 95 12/29/18 22:34 12/29/18 22:34 12/29/18 22:34 12/29/18 22:34 12/29/18 22:34 Intake & Output 12/30/18 12/31/18 01/01/19 06:59 06:59 06:59 Intake Total 600 Output Total 100 Balance 500 Weight 90.2 kg Results Laboratory Results: WBC 14.2 10^3/uL (4.0-10.5) H 12/29/18 17:46 RBC 4.46 10^6/uL (3.72-5.28) 12/29/18 17:46 Hgb 12.5 g/dL (12.0-15.5) 12/29/18 17:46 Hct 38.4 % (36.0-47.0) 12/29/18 17:46 MCV 86 fl (80-97) 12/29/18 17:46 MCH 28.0 pg (27.0-33.4) 12/29/18 17:46 MCHC 32.5 g/dL (32.0-36.0) 12/29/18 17:46 RDW 14.6 % (11.5-14.0) H 12/29/18 17:46 Plt Count 211 10^3/uL (150-450) 12/29/18 17:46 Lymph % (Auto) 28.3 % (13-45) 12/29/18 17:46 [place] % (Auto) 5.5 % (3-13) 12/29/18 17:46 Eos % (Auto) 1.0 % (0-6) 12/29/18 17:46 Baso % (Auto) 0.5 % (0-2) 12/29/18 17:46 Absolute Neuts (auto) 9.2 10^3/uL (1.7-8.2) H 12/29/18 17:46 Absolute Lymphs (auto) 4.0 10^3/uL (0.5-4.7) 12/29/18 17:46 Absolute Monos (auto) 0.8 10^3/uL (0.1-1.4) 12/29/18 17:46 Absolute Eos (auto) 0.1 10^3/uL (0.0-0.6) 12/29/18 17:46 Absolute Basos (auto) 0.1 10^3/uL (0.0-0.2) 12/29/18 17:46 Seg Neutrophils % 64.7 % (42-78) 12/29/18 17:46
== END 2018-12-29 23:08 | disposition home or self-care (01) ==
LOC: 5 16:15
PROVIDERS: ADMIT Surgery; ATTEND Surgery
PROC: 0J960ZZ Drainage of Chest Subcutaneous Tissue and Fascia, Open Approach (ICD-10-PCS; principal; 2018-12-29 17:15)
DX: N61.1 Abscess of the breast and nipple (principal); M54.9 Dorsalgia, unspecified; G89.29 Other chronic pain; I10 Essential (primary) hypertension; J45.909 Unspecified asthma, uncomplicated; F32.9 Major depressive disorder, single episode, unspecified; F17.200 Nicotine dependence, unspecified, uncomplicated; Z88.6 Allergy status to analgesic agent; Z88.1 Allergy status to other antibiotic agents; Z88.8 Allergy status to other drugs, medicaments and biological substances; Z91.048 Other nonmedicinal substance allergy status; F11.20 Opioid dependence, uncomplicated; Z79.899 Other long term (current) drug therapy
CPT/HCPCS: 36415; 87070; 87205; 85025; 87075; 87077; 87186; 00400; 10061; G0378; G0379; A6266; J3490; J0690; J1100; J3010; J2405; J7050; J2543; J0131; 400

== ENCOUNTER 2019-02-22 13:10 | Observation (INO) | payer MEDICARE ==
--- NOTE | 2019-02-22 13:31 | ER Document Report ---
ED Medical Screen (RME) - General Chief Complaint: Breast Problem Stated Complaint: LUMP ON BREAST Time Seen by Provider: 02/22/19 13:23 Primary Care Provider: MARCELINO BARRY DO [Primary Care Provider] - Follow up as needed Mode of Arrival: Ambulatory Information source: Patient Notes: 44-year-old female presents emergency department with complaints of right breast pain. Reports right breast boil. Reports she is had for before she is had to have surgery on her breast due to this. Reports she woke up this morning at 05 100 with the pain. She did take Percocet for the pain without relief of symptoms. Denies other symptoms such as fever vomiting diarrhea. I have greeted and performed a rapid initial assessment of this patient. A comprehensive ED assessment and evaluation of the patient, analysis of test results and completion of the medical decision making process will be conducted by additional ED providers. Dictation of this chart was performed using voice recognition software; therefore, there may be some unintended grammatical errors. TRAVEL OUTSIDE OF THE [place] IN LAST 30 DAYS: No - Related Data Allergies/Adverse Reactions: adhesive tape Allergy (Verified 08/02/18 18:55) ketorolac [From Toradol] Allergy (Verified 12/29/18 17:33) tramadol Allergy (Verified 12/29/18 17:33) cyclobenzaprine [From Flexeril] Adverse Reaction (Verified 04/19/17 08:35) ibuprofen Adverse Reaction (Verified 04/19/17 08:36) methocarbamol [From Robaxin] Adverse Reaction (Verified 04/19/17 08:35) naproxen [From Naprosyn] Adverse Reaction (Verified 04/19/17 08:35) propoxyphene [From Darvocet-N] Adverse Reaction (Verified 04/19/17 08:35) sulfamethoxazole [From Bactrim] Adverse Reaction (Verified 04/19/17 08:36) trimethoprim [From Bactrim] Adverse Reaction (Verified 04/19/17 08:36) Past Medical History - Social History Frequency of alcohol use: None Drug Abuse: None - Past Medical History Cardiac Medical History: Reports: Hx Hypertension Pulmonary Medical History: Reports: Hx Asthma Renal/ Medical History: Denies: Hx Peritoneal Dialysis Past Surgical History: Reports: Hx Orthopedic Surgery - back, Other - History of lumbar laminectomies 4 in the mid 2000s, history of hernia Physical Exam - Vital signs Vitals: Temp Pulse Resp BP Pulse Ox 99.2 F 102 H 18 189/123 H 100 02/22/19 13:17 02/22/19 13:17 02/22/19 13:17 02/22/19 13:17 02/22/19 13:17 Course - Vital Signs Vital signs: Temp Pulse Resp BP Pulse Ox 99.2 F 102 H 18 189/123 H 100 02/22/19 13:17 02/22/19 13:17 02/22/19 13:17 02/22/19 13:17 02/22/19 13:17 Doctor's Discharge - Discharge Referrals: MARCELINO BARRY DO [Primary Care Provider] - Follow up as needed
[2019-02-22] MEDS ORDERED: MORPHINE SULFATE 10 MG/ML INJ IV ONE (14:55)
[2019-02-22] MEDS ORDERED: ONDANSETRON HCL INJ/PF 4 MG/2 ML SDV IV ONE (14:55)
[2019-02-22] MEDS ORDERED: NORMAL SALINE 1000 ML 1,000 ML IV ONE (14:55)
--- NOTE | 2019-02-22 15:00 | RADIOLOGY REPORT (SQ) ---
EXAM DESCRIPTION: U/S BREAST UNILATERAL LIMITED COMPLETED DATE/TIME: 02/22/2019 2:27 pm REASON FOR STUDY: right breast abscess COMPARISON: None TECHNIQUE: Static and Realtime grayscale interrogation of the entire right breast. Selected color d oppler/spectral images saved to PACS. LIMITATIONS: None. FINDINGS: The entire right breast is in course and edematous. In the lower inner quadrant right holly ast, near the sternum at about the 4 o'clock position, a hypoechoic complex fluid collection is prese nt worrisome for abscess measuring 2.2 x 2 x 1.4 cm in size. There is surrounding increased color fl ow. In the right axilla, a hypoechoic subcutaneous fluid collection is present with surrounding increased color flow worrisome for small subcutaneous abscess, 2.4 x 1.8 x 0.7 cm in size. An adjacent, small er subcutaneous fluid collection 6 x 7 x 3 mm in size is seen, possibly an infected sebaceous cyst or other small tiny abscess. No bulky adenopathy in the right axilla. Findings called to Dr. Haprer in the emergency room. IMPRESSION: Focal abscess, 2.2 x 2 x 1.4 cm in size lower inner quadrant right breast 4 o'clock pos ition. Smaller subcutaneous abscess is in the right axilla BIRAD: 2 Benign findings.. RECOMMENDATION: RECOMMENDED FOLLOW-UP: Findings discussed with Dr. Harper in the emergency room. Sergey gical consultation recommended COMMENT: The [employer] ([employer]) has developed recommendations for screening MRI of the breasts in certain patient populations, to be used in conjunction with mammography. Breast MRI s urveillance may be appropriate for women with more than 20% lifetime risk of developing breast cancer as determined by genetic testing, significant family history of the disease, or history of mantle r adiation for Hodgkins Disease. ACR Practice Guidelines 2008. TECHNICAL DOCUMENTATION: FINDING NUMBER: (1) ASSESSMENT: (1) JOB ID: [id number] [facility]- All Rights Reserved Reading location - IP/workstation name: [email or web address]
[2019-02-22] MEDS ORDERED: CLINDAMYCIN 600 MG/D5W RTU 600 MG/50 ML RTUPB IV ONE (15:29)
--- NOTE | 2019-02-22 15:43 | PDOC H&P ---
History of Present Illness Admission Date/PCP: TASHI AGUERO PA-C Patient complains of: Pains along the right breast medial side History of Present Illness: CADE JONES is a 44 year old female with known history of previous abscesses of the right axilla on the right breast woke up at 5:00 this morning complaining of severe pains along the right breast on the medial side. She went to ED where an ultrasound of the right breast is revealed 2 x 1.4 cm abscess along the right medial breast and a smaller right axilla subcutaneous abscess. Patient on chronic pain medication for back pains and despite taking her Percocet dose this morning continued to have severe pains. Past Medical History Cardiac Medical History: Reports: Hypertension Pulmonary Medical History: Reports: Asthma Past Surgical History Past Surgical History: Reports: Orthopedic Surgery - back, Other - History of lumbar laminectomies 4 in the mid , history of hernia Social History Smoking Status: Unknown if Ever Smoked Frequency of Alcohol Use: Occasional Hx Recreational Drug Use: No Drugs: None Hx Prescription Drug Abuse: No Family History Family History: Reviewed & Not Pertinent Parental Family History Reviewed: Yes Children Family History Reviewed: No Sibling(s) Family History Reviewed.: No Medication/Allergy Home Medications: Albuterol Sulfate [Ventolin 0.083% Neb 2.5 mg/3 ml Ampul] 1 vial NEB ASDIR PRN 12/29/18 Albuterol Sulfate [Ventolin Hfa 8 gm Mdi (1 Mdi/ER Disp)] 1 puff IH ASDIR PRN 12/29/18 Carisoprodol [Soma] 250 mg PO QHS 12/29/18 Oxycodone HCl/Acetaminophen [Percocet 10-325 Mg Tablet] 1 each PO Q6HP PRN 12/29/18 Allergies/Adverse Reactions: adhesive tape Allergy (Verified 08/02/18 18:55) ketorolac [From Toradol] Allergy (Verified 12/29/18 17:33) tramadol Allergy (Verified 12/29/18 17:33) cyclobenzaprine [From Flexeril] Adverse Reaction (Verified 04/19/17 08:35) ibuprofen Adverse Reaction (Verified 04/19/17 08:36) methocarbamol [From Robaxin] Adverse Reaction (Verified 04/19/17 08:35) naproxen [From Naprosyn] Adverse Reaction (Verified 04/19/17 08:35) propoxyphene [From Darvocet-N] Adverse Reaction (Verified 04/19/17 08:35) sulfamethoxazole [From Bactrim] Adverse Reaction (Verified 04/19/17 08:36) trimethoprim [From Bactrim] Adverse Reaction (Verified 04/19/17 08:36) Review of Systems Constitutional: PRESENT: other - Denies fever. Had chills Breasts: PRESENT: as per HPI Gastrointestinal: PRESENT: other - No pain Physical Exam Vital Signs: Temp Pulse Resp BP Pulse Ox 99.2 F 102 H 18 189/123 H 100 02/22/19 13:17 02/22/19 13:17 02/22/19 13:17 02/22/19 13:17 02/22/19 13:17 Intake & Output 02/21/19 02/22/19 02/23/19 06:59 06:59 06:59 Weight 90.7 kg General appearance: PRESENT: mild distress Exam: Has some market tenderness along the right medial breast over a previous scar deaths erythematous. Mild tenderness along the right axilla. No evidence of inflammation noted at this site. Results Impressions: Breast Ultrasound 02/22/19 13:28 IMPRESSION: Focal abscess, 2.2 x 2 x 1.4 cm in size lower inner quadrant right breast 4 o'clock position. Smaller subcutaneous abscess is in the right axilla Assessment & Plan - Diagnosis (1) Abscess of right axilla Is this a current diagnosis for this admission?: Yes (2) Abscess of right breast Is this a current diagnosis for this admission?: Yes - Time Time Spent: 30 to 50 Minutes - Inpatient Certification Medical Necessity: Need for IV Antibiotics, Need for Surgery - Plan Summary Plan Summary: 44-year-old female with known history of right breast abscess in the past as well as a right axillary abscesses due to hidradenitis complain of severe pains along the right breast medial side of her previous scar was and went to ED. An ultrasound of the right breast and showed a small abscess around 2 x 1.4 cm and the smaller right axillary subcu tenuous abscess this x2. Impression is abscess of the right breast in the right axilla. Plans: For I&D of right breast and right axilla abscesses. Meantime start IV antibiotics.
[2019-02-22 15:56] LABS: ABSOLUTE BASOPHILS # (AUTO) 0.1 10^3/uL (0.0-0.2); ABSOLUTE EOSINOPHILS # (AUTO) 0.1 10^3/uL (0.0-0.6); ABSOLUTE LYMPHOCYTES (AUTO) 3.1 10^3/uL (0.5-4.7); ABSOLUTE MONOCYTES (AUTO) 0.9 10^3/uL (0.1-1.4); ABSOLUTE NEUT (AUTO) 11.6 10^3/uL (1.7-8.2); BASOPHILS % (AUTO) 0.6 % (0-2); EOSINOPHILS % (AUTO) 0.6 % (0-6); HEMATOCRIT 42.4 % (36.0-47.0); HEMOGLOBIN 13.8 g/dL (12.0-15.5); LYMPHOCYTES % (AUTO) 19.4 % (13-45); MEAN CORPUSCULAR HEMOGLOBIN 28.4 pg (27.0-33.4); MEAN CORPUSCULAR HGB CONC 32.6 g/dL (32.0-36.0); MEAN CORPUSCULAR VOLUME 87 fl (80-97); MONOCYTES % (AUTO) 5.9 % (3-13); PLATELET COUNT 258 10^3/uL (150-450); RED BLOOD COUNT 4.87 10^6/uL (3.72-5.28); RED CELL DISTRIBUTION WIDTH 14.4 % (11.5-14.0); SEGMENTED NEUTROPHILS % (AUTO) 73.5 % (42-78); TOTAL CELLS COUNTED % (AUTO) 100 %; WHITE BLOOD COUNT 15.8 10^3/uL (4.0-10.5)
[2019-02-22 16:02] LABS: APPEARANCE,URINE SLIGHTLY-CLOUDY; BILIRUBIN,URINE NEGATIVE (NEGATIVE); COLOR,URINE YELLOW; GLUCOSE, URINE NEGATIVE (NEGATIVE); KETONES,URINE NEGATIVE (NEGATIVE); LEUKOCYTE ESTERASE,URINE NEGATIVE (NEGATIVE); NITRITE,URINE NEGATIVE (NEGATIVE); PROTEIN,URINE NEGATIVE (NEGATIVE); URINE SPECIFIC GRAVITY 1.023; UROBILINOGEN,URINE NEGATIVE mg/dL (<2.0)
[2019-02-22 16:16] LABS: ALBUMIN 4.7 g/dL (3.5-5.0); ALKALINE PHOSPHATASE 84 U/L (38-126); ANION GAP 10 (5-19); ASPARTATE AMINO TRANSFERASE 18 U/L (14-36); BILIRUBIN,DIRECT 0.1 mg/dL (0.0-0.4); BILIRUBIN,TOTAL 0.5 mg/dL (0.2-1.3); BLOOD UREA NITROGEN 9 mg/dL (7-20); CALCIUM 9.7 mg/dL (8.4-10.2); CARBON DIOXIDE 22 mmol/L (22-30); CHLORIDE 106 mmol/L (98-107); GLUCOSE 83 mg/dL (75-110); POTASSIUM 4.2 mmol/L (3.6-5.0)
--- NOTE | 2019-02-22 16:17 | ER Document Report ---
Entered by MICHAEL JHAVERI SCRIBE 02/22/19 1454 Acting as scribe for:TIAN NEGRETE MD ED Breast Problem - General Chief Complaint: Breast Problem Stated Complaint: LUMP ON BREAST Time Seen by Provider: 02/22/19 13:23 Primary Care Provider: MARCELINO BARRY DO [NO LOCAL MD] - Follow up as needed Mode of Arrival: Ambulatory Information source: Patient Notes: This 44-year-old female patient with hydradenitis suppurativa presents to the emergency department today with complaints of an abscess to the right axilla and right breast. Patient states the right breast is her primary concern as it is the most painful. Patient has had frequent I&D's of abscesses in the past. Patient is on pain management. Pertinent PMHx/PSHx: Hydradenitis suppurativa, on pain management, 10 mg oxycodone 4 times daily - additional PMHx/PSHx not pertinent to this visit as recorded. TRAVEL OUTSIDE OF THE [place] IN LAST 30 DAYS: No - Related Data Allergies/Adverse Reactions: adhesive tape Allergy (Verified 08/02/18 18:55) ketorolac [From Toradol] Allergy (Verified 12/29/18 17:33) tramadol Allergy (Verified 12/29/18 17:33) cyclobenzaprine [From Flexeril] Adverse Reaction (Verified 04/19/17 08:35) ibuprofen Adverse Reaction (Verified 04/19/17 08:36) methocarbamol [From Robaxin] Adverse Reaction (Verified 04/19/17 08:35) naproxen [From Naprosyn] Adverse Reaction (Verified 04/19/17 08:35) propoxyphene [From Darvocet-N] Adverse Reaction (Verified 04/19/17 08:35) sulfamethoxazole [From Bactrim] Adverse Reaction (Verified 04/19/17 08:36) trimethoprim [From Bactrim] Adverse Reaction (Verified 04/19/17 08:36) Past Medical History - General Information source: Patient - Social History Smoking Status: Current Every Day Smoker Cigarette use (# per day): Yes - 1ppd Frequency of alcohol use: None Drug Abuse: None Lives with: Family Family History: Reviewed & Not Pertinent Patient has suicidal ideation: No Patient has homicidal ideation: No - Past Medical History Cardiac Medical History: Reports: Hx Hypertension Pulmonary Medical History: Reports: Hx Asthma Skin Medical History: Reports Other - Hydradenitis suppurativa Past Surgical History: Reports: Hx Orthopedic Surgery - back, Other - History of lumbar laminectomies 4 in the mid 1999s, history of hernia Review of Systems - Review of Systems Constitutional: No symptoms reported EENT: No symptoms reported Cardiovascular: No symptoms reported Respiratory: No symptoms reported Gastrointestinal: No symptoms reported Genitourinary: No symptoms reported Female Genitourinary: No symptoms reported Musculoskeletal: No symptoms reported Skin: See HPI, Other - Abscess to right breast, right axilla Hematologic/Lymphatic: No symptoms reported Neurological/Psychological: No symptoms reported -: Yes All other systems reviewed and negative Physical Exam - Vital signs Vitals: Temp Pulse Resp BP Pulse Ox 99.2 F 102 H 18 189/123 H 100 02/22/19 13:17 02/22/19 13:17 02/22/19 13:17 02/22/19 13:17 02/22/19 13:17 - Notes Notes: Physical Exam: General: Alert, appears well. HEENT: Normocephalic. Atraumatic. PERRL. Extraocular movements intact. Oropharynx clear. Neck: Supple. Non-tender. Respiratory: No respiratory distress. Clear and equal breath sounds bilaterally. Cardiovascular: Regular rate and rhythm. Abdominal: Obese. Non-tender. No distension. Normal Bowel Sounds. Back: No gross abnormalities. Extremities: Moves all four extremities. Upper extremities: Normal inspection. Normal ROM. Lower extremities: Normal inspection. No edema. Normal ROM. Neurological: Normal cognition. AAOx4. Normal speech. Psychological: Normal affect. Normal Mood. Skin: Large abscess in the right breast, exquisite tenderness with palpation. Abscess in right axilla. Course - Vital Signs Vital signs: Temp Pulse Resp BP Pulse Ox 99.2 F 102 H 18 189/123 H 100 02/22/19 13:17 02/22/19 13:17 02/22/19 13:17 02/22/19 13:17 02/22/19 13:17 - Laboratory Result Diagrams: 02/22/19 15:30 02/22/19 15:30 - Diagnostic Test Radiology reviewed: Image reviewed, Reports reviewed - Ultrasound shows a large abscess in the right medial breast and another abscess in the right axilla - Consults Dr. Marquis Consulted provider: will come to ER - Did come to see the patient, and is going to take her to the operating room from the emergency room. Discharge - Discharge Clinical Impression: Abscess of right axilla, Abscess of right breast, Smoker Condition: Stable Disposition: ADMITTED INPATIENT Admitting Provider: Surgicalist Unit Admitted: OR Referrals: MARCELINO BARRY, [NO LOCAL MD] - Follow up as needed Scribe Attestation: 02/22/19 15:02 I personally performed the services described in the documentation, reviewed and edited the documentation which was dictated to the scribe in my presence, and it accurately records my words and actions. I personally performed the services described in the documentation, reviewed and edited the documentation which was dictated to the scribe in my presence, and it accurately records my words and actions.
[2019-02-22] MEDS ORDERED: HYDROMORPHONE HCL INJ/PF 2 MG/ML AMPULE IV ONE (16:33)
[2019-02-22] MEDS ORDERED: LIDOCAINE 0.5% INJ-PF (5 MG/ML) 50 ML SDV ONE (16:57)
[2019-02-22] MEDS ORDERED: FENTANYL CITRATE INJ/PF 100 MCG/2 ML AMPUL ONE ×2 (17:13→18:37)
[2019-02-22] MEDS ORDERED: DEXAMETHASONE SOD PHOSPHATE INJ 4 MG/1 ML VIAL ONE (17:14)
[2019-02-22] MEDS ORDERED: MORPHINE SULFATE 10 MG/ML INJ ONE (17:14)
[2019-02-22] MEDS ORDERED: ONDANSETRON HCL INJ/PF 4 MG/2 ML SDV ONE (17:14)
[2019-02-22] MEDS ORDERED: MIDAZOLAM 2 MG/2 ML INJ ONE (17:14)
[2019-02-22] MEDS ORDERED: PROPOFOL INJ 200 MG/20 ML VIAL IV ONE (17:14)
[2019-02-22] MEDS ORDERED: ONDANSETRON HCL INJ/PF 4 MG/2 ML SDV IV PRN ×2 (17:56→23:53)
[2019-02-22] MEDS ORDERED: MORPHINE SULFATE 10 MG/ML INJ IV PRN (17:56)
[2019-02-22] MEDS ORDERED: FENTANYL CITRATE INJ/PF 100 MCG/2 ML AMPUL IV PRN ×3 (17:56)
[2019-02-22] MEDS ORDERED: DIPHENHYDRAMINE HCL 50 MG/ML VIAL IV PRN (17:56)
[2019-02-22] MEDS ORDERED: NORMAL SALINE 1000 ML 1,000 ML IV PRN (18:20)
[2019-02-22] MEDS ORDERED: HYDROMORPHONE HCL INJ/PF 2 MG/ML AMPULE IV PRN (18:20)
--- NOTE | 2019-02-22 18:39 | Operative Report ---
Operative Report DATE OF SURGERY: 02/22/19 PREOPERATIVE DIAGNOSIS: Abscesses of the right breast and 2 small abscesses of the right axilla POSTOPERATIVE DIAGNOSIS: Same likely due to hidradenitis OPERATION: Incision and drainage of abscess of the right breast, 2 other abs cesses on the right axilla SURGEON: DEANDRA AHMADI ANESTHESIA: GA TISSUE REMOVED OR ALTERED: Pus from the right breast abscess was sent for culture and sensitivity studies COMPLICATIONS: None ESTIMATED BLOOD LOSS: 10 cc QUANTITATIVE BLOOD LOSS: 10 INTRAOPERATIVE FINDINGS: Abscess on the right breast medial aspect on the previous I&D site with scarring. 2 other smaller abscesses along the right axilla PROCEDURE: After adequate general anesthesia the right breast and the right axilla were then prepped and draped in the usual sterile fashion. Appropriate timeout was then called. Next local anesthesia infiltrated along the somewhat fluctuant area on the right breast medial side where a scar is noted. The incision was made and pus extruded out. Cultures were then obtained. The cavity was then probed and extended medially to a distance of about 1.5 cm long. The cavity was then irrigated with saline solution. It appears to be right at the subcutaneous level. Attention was then directed to the right axilla. There was a fluctuant area on the crease of the axilla that was incised and some purulent material extruded out. There was some whitish contents typical of hidradenitis. About a 1 cm long incision was made. Another area more towards the mid part of axilla which appears to be indurated was then incised. Again a about a 1cm longitudinal incision was made. Smaller amount of purulent material extruded out together with some typical of hidradenitis contents. Both abscesses in the axilla were also irrigated with saline solution. All the abscess cavities were then packed with quarter inch iodoform gauze and dressed with 4 x 4 and ABD. Patient tolerated procedure well and brought to the recovery room extubated in satisfactory condition.
[2019-02-23] MEDS: CLINDAMYCIN 600 MG/D5W RTU 600 MG/50 ML RTUPB IV SCH ×2 (00:31→05:44)
[2019-02-23] MEDS: OXYCODONE-ACETAMINOPHEN 5-325 MG TABLET PO PRN ×2 (01:38→08:14)
[2019-02-23 09:01] VITALS: BP 158/80
--- NOTE | 2019-02-26 08:34 | PDOC DISCHARGE SUMMARY ---
General - Admit/Disc Date/PCP Admission Date/Primary Care Provider: 02/22/19 16:19 TASHI AGUERO PA-C Discharge Date: 02/23/19 - Discharge Diagnosis Final Diagnosis: Abscess right breast, 2 smaller abscess on the right axilla - Assessment Summary: Patient is a history of hydradenitis and multiple I&D's of abscesses in both breasts in the right axilla admitted for pains along the right breast medial side in the right axilla with the ultrasound showing a small collection and S3 areas. She then underwent I&D of right breast abscess as well as the 2 right axillary abscesses by Dr. Marquis. The next day drains were removed and patient was discharged on p.o. clindamycin 300 mg p.o. 4 times a day for about 7 days. Patient to be followed up in the surgical clinic in about 2weeks. She is to continue on her pain medication regimen by pain medicine. - Additional Information Resuscitation Status: Full Code Discharge Diet: Regular Discharge Activity: Activity As Tolerated Referrals: [facility] [Provider Group] - 03/09/19 10:00 am (WITH DR. DALLAS ) Home Medications: Carisoprodol [Soma] 250 mg PO BIDP PRN 02/22/19 Fluticasone Propionate [Flovent Hfa 110 Mcg Inhalation Aerosol 12 gm] 2 puff IH Q12 02/22/19 Oxycodone HCl/Acetaminophen [Percocet 10-325 mg Tablet] 1 tab PO Q6HP PRN 02/22/19 Ondansetron [Zofran Odt 4 mg Tablet] 1 - 2 tab PO Q4H PRN #15 tab.rapdis 02/24/19 Promethazine HCl [Phenergan 25 mg Tablet] 1 - 2 tab PO Q6H PRN #15 tablet 02/24/19 History of Present Illiness History of Present Illness: CADE JONES is a 44 year old female with known history of previous abscesses of the right axilla on the right breast woke up at 5:00 this morning complaining of severe pains along the right breast on the medial side. She went to ED where an ultrasound of the right breast is revealed 2 x 1.4 cm abscess along the right medial breast and a smaller right axilla subcutaneous abscess. Patient on chronic pain medication for back pains and despite taking her Percocet dose this morning continued to have severe pains. Hospital Course Hospital Course: Patient underwent I&D of right breast and right axillary abscesses on admission 02/22/[address] Marquis. Drains were removed the next day and discharged improved on p.o. clindamycin. Patient to continue on her Percocet medication according to her pain management regimen. Patient to be followed up in the surgical clinic in 2 weeks a note was given to the patient to see Dr. Cornejo plastic surgery to do evaluation for possible radical removal of the right axilla and breast hydradenitis Physical Exam Vital Signs: Temp Pulse Resp BP Pulse Ox 97.5 F 77 16 158/80 H 100 02/23/19 08:59 02/23/19 08:59 02/23/19 08:59 02/23/19 08:59 02/23/19 08:59 Exam: Tenderness right breast medial aspect as well as the mild tenderness along the right axilla. This was done on admission Results Laboratory Results: WBC 15.8 10^3/uL (4.0-10.5) H 02/22/19 15:30 RBC 4.87 10^6/uL (3.72-5.28) 02/22/19 15:30 Hgb 13.8 g/dL (12.0-15.5) 02/22/19 15:30 Hct 42.4 % (36.0-47.0) 02/22/19 15:30 MCV 87 fl (80-97) 02/22/19 15:30 MCH 28.4 pg (27.0-33.4) 02/22/19 15:30 MCHC 32.6 g/dL (32.0-36.0) 02/22/19 15:30 RDW 14.4 % (11.5-14.0) H 02/22/19 15:30 Plt Count 258 10^3/uL (150-450) 02/22/19 15:30 Lymph % (Auto) 19.4 % (13-45) 02/22/19 15:30 Rice % (Auto) 5.9 % (3-13) 02/22/19 15:30 Eos % (Auto) 0.6 % (0-6) 02/22/19 15:30 Baso % (Auto) 0.6 % (0-2) 02/22/19 15:30 Absolute Neuts (auto) 11.6 10^3/uL (1.7-8.2) H 02/22/19 15:30 Absolute Lymphs (auto) 3.1 10^3/uL (0.5-4.7) 02/22/19 15:30 Absolute Monos (auto) 0.9 10^3/uL (0.1-1.4) 02/22/19 15:30 Absolute Eos (auto) 0.1 10^3/uL (0.0-0.6) 02/22/19 15:30 Absolute Basos (auto) 0.1 10^3/uL (0.0-0.2) 02/22/19 15:30 Seg Neutrophils % 73.5 % (42-78) 02/22/19 15:30 Sodium 137.9 mmol/L (137-145) 02/22/19 15:30 Potassium 4.2 mmol/L (3.6-5.0) 02/22/19 15:30 Chloride 106 mmol/L (98-107) 02/22/19 15:30 Carbon Dioxide 22 mmol/L (22-30) 02/22/19 15:30 Anion Gap 10 (5-19) 02/22/19 15:30 BUN 9 mg/dL (7-20) 02/22/19 15:30 Creatinine 0.66 mg/dL (0.52-1.25) 02/22/19 15:30 Est GFR ( Amer) > 60 (>60) 02/22/19 15:30 Est GFR (MDRD) Non-Af > 60 (>60) 02/22/19 15:30 Glucose 83 mg/dL (75-110) 02/22/19 15:30 Calcium 9.7 mg/dL (8.4-10.2) 02/22/19 15:30 Total Bilirubin 0.5 mg/dL (0.2-1.3) 02/22/19 15:30 Direct Bilirubin 0.1 mg/dL (0.0-0.4) 02/22/19 15:30 Neonat Total Bilirubin Not Reportable 02/22/19 15:30 Neonat Direct Bilirubin Not Reportable 02/22/19 15:30 Neonat Indirect Bili Not Reportable 02/22/19 15:30 AST 18 U/L (14-36) 02/22/19 15:30 ALT 10 U/L (<35) 02/22/19 15:30 Alkaline Phosphatase 84 U/L (38-126) 02/22/19 15:30 Total Protein 8.0 g/dL (6.3-8.2) 02/22/19 15:30 Albumin 4.7 g/dL (3.5-5.0) 02/22/19 15:30 Urine Color YELLOW 02/22/19 15:30 Urine Appearance SLIGHTLY-CLOUDY 02/22/19 15:30 Urine pH 6.0 (5.0-9.0) 02/22/19 15:30 Ur Specific [place] 1.023 02/22/19 15:30 Urine Protein NEGATIVE mg/dL (NEGATIVE) 02/22/19 15:30 Urine Glucose (UA) NEGATIVE mg/dL (NEGATIVE) 02/22/19 15:30 Urine Ketones NEGATIVE mg/dL (NEGATIVE) 02/22/19 15:30 Urine Blood MODERATE (NEGATIVE) H 02/22/19 15:30 Urine Nitrite NEGATIVE (NEGATIVE) 02/22/19 15:30 Urine Bilirubin NEGATIVE (NEGATIVE) 02/22/19 15:30 Urine Urobilinogen NEGATIVE mg/dL (<2.0) 02/22/19 15:30 Ur Leukocyte Esterase NEGATIVE (NEGATIVE) 02/22/19 15:30 Urine WBC (Auto) 1 /HPF 02/22/19 15:30 Urine RBC (Auto) 10 /HPF 02/22/19 15:30 U Hyaline Cast (Auto) 1 /LPF 02/22/19 15:30 Urine Bacteria (Auto) TRACE /HPF 02/22/19 15:30 Squamous Epi Cells Auto 6 /HPF 02/22/19 15:30 Urine Mucus (Auto) MANY /LPF 02/22/19 15:30 Urine Ascorbic Acid NEGATIVE (NEGATIVE) 02/22/19 15:30 Impressions: Breast Ultrasound 02/22/19 13:28 IMPRESSION: Focal abscess, 2.2 x 2 x 1.4 cm in size lower inner quadrant right breast 4 o'clock position. Smaller subcutaneous abscess is in the right axilla Plan Plan of Treatment: I&D of right breast and right axillary abscesses on 02/22/2019 Time Spent: Less than 30 Minutes
== END 2019-02-23 09:21 | disposition home or self-care (01) ==
LOC: ER 13:10 → INTOOBSV 16:19 → EH 16:19 → 5 20:18
PROVIDERS: ADMIT Surgery; ATTEND Surgery
PROC: 0J9D0ZZ Drainage of Right Upper Arm Subcutaneous Tissue and Fascia, Open Approach (ICD-10-PCS; 2019-02-22)
PROC: 0H9T0ZZ Drainage of Right Breast, Open Approach (ICD-10-PCS; principal; 2019-02-22 16:30)
DX: N61.1 Abscess of the breast and nipple (principal); L02.411 Cutaneous abscess of right axilla; L73.2 Hidradenitis suppurativa; G89.29 Other chronic pain; M54.9 Dorsalgia, unspecified; F17.210 Nicotine dependence, cigarettes, uncomplicated; Z79.891 Long term (current) use of opiate analgesic; Z98.890 Other specified postprocedural states; Z79.899 Other long term (current) drug therapy
CPT/HCPCS: 99284; 96361; 96374; 96375; 36415; 87040; 87070; 87205; 85025; 87075; 87077; 80053; 81001; 76642; 00400; 10060; 10061; G0378 ×2; A6266; J2250; J1100; J3010; J3490; J2270; A9270; J1170; J2405 ×2; J7030; J2704; 400

== ENCOUNTER 2019-02-24 01:18 | Emergency (ER) | payer MEDICARE ==
[2019-02-24] MEDS ORDERED: HYDROMORPHONE HCL INJ/PF 2 MG/ML AMPULE IV ONE (03:37)
[2019-02-24] MEDS ORDERED: NORMAL SALINE 1000 ML 1,000 ML IV ONE (03:37)
[2019-02-24] MEDS ORDERED: ONDANSETRON HCL INJ/PF 4 MG/2 ML SDV IV ONE ×2 (03:37→05:31)
[2019-02-24 04:19] LABS: ABSOLUTE BASOPHILS # (AUTO) 0.1 10^3/uL (0.0-0.2); ABSOLUTE EOSINOPHILS # (AUTO) 0.1 10^3/uL (0.0-0.6); ABSOLUTE LYMPHOCYTES (AUTO) 3.9 10^3/uL (0.5-4.7); ABSOLUTE MONOCYTES (AUTO) 0.8 10^3/uL (0.1-1.4); EOSINOPHILS % (AUTO) 0.6 % (0-6); HEMATOCRIT 37.4 % (36.0-47.0); HEMOGLOBIN 12.2 g/dL (12.0-15.5); LYMPHOCYTES % (AUTO) 30.3 % (13-45); MEAN CORPUSCULAR HEMOGLOBIN 28.5 pg (27.0-33.4); MEAN CORPUSCULAR HGB CONC 32.6 g/dL (32.0-36.0); MEAN CORPUSCULAR VOLUME 87 fl (80-97); PLATELET COUNT 225 10^3/uL (150-450); RED BLOOD COUNT 4.27 10^6/uL (3.72-5.28); SEGMENTED NEUTROPHILS % (AUTO) 62.1 % (42-78); TOTAL CELLS COUNTED % (AUTO) 100 %; WHITE BLOOD COUNT 12.9 10^3/uL (4.0-10.5)
[2019-02-24 04:30] LABS: ALBUMIN 3.7 g/dL (3.5-5.0); ALKALINE PHOSPHATASE 68 U/L (38-126); ANION GAP 6 (5-19); ASPARTATE AMINO TRANSFERASE 30 U/L (14-36); BILIRUBIN,DIRECT 0.1 mg/dL (0.0-0.4); BILIRUBIN,TOTAL 0.3 mg/dL (0.2-1.3); BLOOD UREA NITROGEN 6 mg/dL (7-20); CARBON DIOXIDE 25 mmol/L (22-30); CHLORIDE 108 mmol/L (98-107); GLUCOSE 90 mg/dL (75-110); POTASSIUM 3.8 mmol/L (3.6-5.0); TOTAL PROTEIN 6.4 g/dL (6.3-8.2)
--- NOTE | 2019-02-24 04:50 | ER Document Report ---
ED General - General Chief Complaint: Post Surgical Pain Stated Complaint: POST OP PAIN/PAIN ALL OVER Time Seen by Provider: 02/24/19 02:56 Primary Care Provider: TASHI AGUERO PA-C [Primary Care Provider] - Follow up as needed Notes: 44-year-old female presents the emergency department complaining of pain diffusely over her entire body. Patient states that even her teeth hurt. Patient states that this pain developed yesterday around the same time as she was leaving the hospital. She had surgery performed on her right axilla and her right breast for hidradenitis supurativa, states that she had "boils that b usted" and they removed some of her lymph nodes for this. Patient has had similar surgeries in the past but never had similar pain. Admits to nausea, denies any vomiting, states that she has not had any oral intake since Friday. Denies any diarrhea, states that her abdominal pain is the same as the pain everywhere else in her body including in her teeth. Patient states that she has not taken her blood pressure medications for the past 3 weeks due to them all being recalled. Patient has been able to tolerate her oral Percocet without difficulty. States it is not making a difference in her pain. Denies any other symptoms. TRAVEL OUTSIDE OF THE [place] IN LAST 30 DAYS: No - Related Data Allergies/Adverse Reactions: adhesive tape Allergy (Verified 08/02/18 18:55) ketorolac [From Toradol] Allergy (Verified 12/29/18 17:33) tramadol Allergy (Verified 12/29/18 17:33) cyclobenzaprine [From Flexeril] Adverse Reaction (Verified 04/19/17 08:35) ibuprofen Adverse Reaction (Verified 04/19/17 08:36) methocarbamol [From Robaxin] Adverse Reaction (Verified 04/19/17 08:35) naproxen [From Naprosyn] Adverse Reaction (Verified 04/19/17 08:35) propoxyphene [From Darvocet-N] Adverse Reaction (Verified 04/19/17 08:35) sulfamethoxazole [From Bactrim] Adverse Reaction (Verified 04/19/17 08:36) trimethoprim [From Bactrim] Adverse Reaction (Verified 04/19/17 08:36) Home Medications: percocet prn back pain. zofran prn Past Medical History - General Information source: Patient - Social History Smoking Status: Current Every Day Smoker Chew tobacco use (# tins/day): No Frequency of alcohol use: Occasional Drug Abuse: None Family History: Reviewed & Not Pertinent Patient has suicidal ideation: No Patient has homicidal ideation: No - Past Medical History Cardiac Medical History: Reports: Hx Hypertension Pulmonary Medical History: Reports: Hx Asthma Renal/ Medical History: Denies: Hx Peritoneal Dialysis Past Surgical History: Reports: Hx Breast Surgery - biopsy 02/23/19, Hx Orthopedic Surgery - back, Other - History of lumbar laminectomies 4 in the mid , history of hernia Review of Systems - Review of Systems Constitutional: See HPI - Feels generally ill. Denies any chills or sweats or fevers. EENT: See HPI - States her teeth hurt. All of them. Cardiovascular: No symptoms reported Respiratory: No symptoms reported Gastrointestinal: See HPI Musculoskeletal: See HPI - Complains of diffuse full body pain, states everything hurts., Muscle pain Skin: See HPI -: Yes All other systems reviewed and negative Physical Exam - Vital signs Vitals: Temp Pulse Resp BP Pulse Ox 97.8 F 84 16 204/107 H 94 02/24/19 01:52 02/24/19 01:52 02/24/19 01:52 02/24/19 01:52 02/24/19 01:52 Interpretation: Hypertensive - Notes Notes: GENERAL: Alert, interacts well. Anxious. HEAD: Normocephalic, atraumatic EYES: Pupils equal, round and reactive to light, extraocular movements intact. ENT: Oral mucosa moist, tongue midline. NECK: Full range of motion, supple, trachea midline. LUNGS: Clear to auscultation bilaterally, no wheezes, rales or rhonchi, no respiratory distress. HEART: Regular rate and rhythm, no murmurs, gallops, rubs. ABDOMEN: Soft, mild diffuse tenderness across her entire abdomen, nonfocal, no guarding, no rigidity, no rebounding, nondistended, bowel sounds present in all 4 quadrants. EXTREMITIES: Moves all 4 extremities spontaneously, no edema, radial and dorsalis pedis pulses 2/4 bilaterally. No cyanosis. NEUROLOGICAL: Alert and oriented x3, normal speech. PSYCH: Normal mood, normal affect. SKIN: Warm, Dry, fresh incisions noted to the right axilla and the medial aspect of the right breast, minimal surrounding erythema to the right breast which is nontender, patient flinches when I peeled back the tape or try to adjust her clothing to examine her. No specific focal tenderness anywhere on her body. Complains of pain everywhere when I even lightly touch her or try to move her. Course - Re-evaluation Re-evalutation: 02/24/19 04:50 CBC shows leukocytosis of 12.9, CMP grossly unremarkable, test and flu swabs are pending. I am concerned that she may have contracted influenza during her hospitalization. We will wait for these lab studies to come back. Dr. Marquis did give a courtesy visit to this patient as he was in the emergency department seeing another patient. Feels that her incisions look good and he does not see any signs of infection at this time. He agree with him and apprec iate his informal consult. Patient will be hydrated and we will reevaluate after flu swabs and test have returned. 02/24/19 05:08 test is negative, flu swab is negative. 02/24/19 05:32 Patient states that all the saline did was make her have to urinate and she does not feel like she had any relief or change in her pain whatsoever from the Dilaudid. Patient states she feels like it just went straight through her system and she peed it out. Patient has developed no further symptoms, still complaining of completely unchanged pain that is diffusely across her entire body including her teeth. Patient's exam is very nonfocal at this point. Discussed with the patient that I do not have an explanation for why she has having so much pain however I do not know what other studies I could do at this point to try and pinpoint the exact cause of her pain. I did offer to try some muscle relaxers to help with the spasming type pain she describes in her muscles, patient states she is already taking Soma 250 mg several times a day at home. Patient asked if there were other muscle relaxers I might try and I stated that I typically would use something like Flexeril or Robaxin and she stated she is allergic to those and they do not work anyway. Discussed results with patient's as well, currently I recommend that the patient be discharged home, sleep, use Zofran and Phenergan to treat her nausea so she is able to tolerate her usual home medications including her Percocet and her Soma, consider taking warm baths or warm showers and using heating pads to relax her muscles and soothe her pain. Recommended that she return if she develops any new symptoms or further symptoms that might help us to target our investigation further. Discussed with family that typically this type of diffuse full body pain that includes feeling like all of her teeth hurt is usually associated with some sort of a viral syndrome, but there could be something else going on. Gume jaime will return if she develops cough, fever, localizing abdominal pain, vomiting or any new or concerning symptoms. is agreeable to this plan. Patient states that she has to have something else for her pain before she goes home. Discussed with patient that if the milligram of Dilaudid felt like water going through her IV and made absolutely no difference in her pain that I did not feel a switch from Dilaudid to morphine would be beneficial and that I did not feel it was a reasonable or safe plan to try escalating doses of narcotics for her non-focal pain without specific source at this time. I will give her Zofran here and Phenergan here so that she is able to tolerate her usual home pain regimen when she gets home. 02/24/19 05:36 Of note on recheck patient is not tachypneic nor is she tachycardic. Hypertension may be related to pain but is also likely related to the fact that she has not been taking her antihypertensives for 3 weeks. - Vital Signs Vital signs: Temp Pulse Resp BP Pulse Ox 97.8 F 63 16 173/89 H 99 02/24/19 01:52 02/24/19 05:00 02/24/19 05:00 02/24/19 05:00 02/24/19 05:00 - Laboratory Result Diagrams: 02/24/19 03:55 02/24/19 03:55 Laboratory results interpreted by me: 02/24/19 02/24/19 03:55 03:55 WBC 12.9 H Chloride 108 H BUN 6 L Discharge - Discharge Clinical Impression: Diffuse pain, Status post incision and drainage Condition: Stable Disposition: HOME, SELF-CARE Additional Instructions: I do not know exactly what is causing your pain today. Today did not find any signs of overwhelming infection, bloodstream infection, influenza, electrolyte imbalance or any other specific cause of your pain. I have prescribed Zofran and Phenergan to use for your nausea at home. I would recommend using the Zofran to stop any vomiting and then use the Phenergan to take away your nausea once you are able to tolerate pills and fluids by mouth. It is very important that you stay on your usual home pain regimen or else you are likely to experien ce some withdrawal symptoms as you have been chronically on narcotics for an extended period of time and missing doses could cause you to have withdrawal type symptoms. If you develop any new symptoms, have a fever, have localized abdominal pain, develop a cough or difficulty breathing or any new or concerning symptoms please return to the emergency department. Prescriptions: Promethazine HCl [Phenergan 25 mg Tablet] 1 - 2 tab PO Q6H PRN #15 tablet PRN Reason: Ondansetron [Zofran Odt 4 mg Tablet] 1 - 2 tab PO Q4H PRN #15 tab.rapdis PRN Reason: For Nausea/Vomiting Referrals: TASHI AGUERO PA-C [Primary Care Provider] - Follow up as needed
[2019-02-24 05:02] LABS: A TYPE INFLUENZA AG NEGATIVE (NEGATIVE); B INFLUENZA AG NEGATIVE (NEGATIVE)
[2019-02-24 05:20] VITALS: BP 173/89
[2019-02-24] MEDS ORDERED: PROMETHAZINE HCL 25 MG TABLET PO ONE (05:31)
[2019-02-24 05:37] LABS: APPEARANCE,URINE CLEAR; BILIRUBIN,URINE NEGATIVE (NEGATIVE); COLOR,URINE YELLOW; GLUCOSE, URINE NEGATIVE (NEGATIVE); KETONES,URINE NEGATIVE (NEGATIVE); LEUKOCYTE ESTERASE,URINE NEGATIVE (NEGATIVE); NITRITE,URINE NEGATIVE (NEGATIVE); PROTEIN,URINE NEGATIVE (NEGATIVE); URINE SPECIFIC GRAVITY 1.011; UROBILINOGEN,URINE NEGATIVE mg/dL (<2.0)
== END 2019-02-24 06:45 | disposition home or self-care (01) ==
LOC: ER 01:18
DX: K08.89 Other specified disorders of teeth and supporting structures (principal); R10.9 Unspecified abdominal pain; M79.10 Myalgia, unspecified site; Z98.890 Other specified postprocedural states; R10.817 Generalized abdominal tenderness; R11.0 Nausea; I10 Essential (primary) hypertension; J45.909 Unspecified asthma, uncomplicated; Z79.891 Long term (current) use of opiate analgesic; Z79.899 Other long term (current) drug therapy; F17.200 Nicotine dependence, unspecified, uncomplicated; Z91.048 Other nonmedicinal substance allergy status; Z88.8 Allergy status to other drugs, medicaments and biological substances; Z88.5 Allergy status to narcotic agent
CPT/HCPCS: 36415; 84703; 85025; 80053; 81001; 87804; J1170; A9270; J2405; J7030; 96361; 96374; 96375; 96376; 99283

== ENCOUNTER 2019-07-20 00:44 | Observation (INO) | payer MEDICAID, MEDICARE ==
--- NOTE | 2019-07-20 02:41 | ER Document Report ---
HPI - HPI Time Seen by Provider: 07/20/19 01:24 Pain Level: 5 Notes: 44-year-old female patient with history of hidradenitis presents the emergency department chief complaint of abscess to her right axillary area. She reports it extends slightly into her arm and to her breast. She reports history of this multiple times in the past, she has been here multiple times for this and has always had to be seen by surgery in the OR. She reports this time is been present for approximately 1 week. She states she tried using the soap that Dr. Betancur prescribed to her without relief. She reports no fevers or chills. - REPRODUCTIVE Reproductive: DENIES: : Past Medical History - General Information source: Patient - Social History Smoking Status: Current Every Day Smoker Frequency of alcohol use: None Family History: Reviewed & Not Pertinent Patient has suicidal ideation: No Patient has homicidal ideation: No - Past Medical History Cardiac Medical History: Reports: Hx Hypertension Pulmonary Medical History: Reports: Hx Asthma Renal/ Medical History: Denies: Hx Peritoneal Dialysis Past Surgical History: Reports: Hx Breast Surgery - biopsy 02/23/19, Hx Orthopedic Surgery - back, Other - History of lumbar laminectomies 4 in the mid , history of hernia Vertical Provider Document - CONSTITUTIONAL Notes: PHYSICAL EXAMINATION: GENERAL: Well-appearing, well-nourished and in no acute distress. HEAD: Atraumatic, normocephalic. EYES: Pupils equal round and reactive to light, extraocular movements intact, conjunctiva are normal. ENT: Nares patent, oropharynx clear without exudates. Moist mucous membranes. NECK: Normal range of motion, supple without lymphadenopathy LUNGS: Breath sounds clear to auscultation bilaterally and equal. No wheezes rales or rhonchi. HEART: Regular rate and rhythm without murmurs ABDOMEN: Soft, nontender, nondistended abdomen. No guarding, no rebound. No masses appreciated. Female : deferred Musculoskeletal: Normal range of motion, no pitting or edema. No cyanosis. NEUROLOGICAL: Cranial nerves grossly intact. Normal speech, normal gait. Normal sensory, motor exams PSYCH: Normal mood, normal affect. SKIN: Area of erythema with induration noted to axillary area on the right side, extends down into the breast and upper arm. - INFECTION CONTROL TRAVEL OUTSIDE OF THE [place] IN LAST 30 DAYS: No Course - Re-evaluation Re-evalutation: 07/20/19 03:30 Patient accepted for admission by Dr. Marquis, general surgery. He would like patient n.p.o., he will take her to the OR in the morning for incision and drainage. - Vital Signs Vital signs: Temp Pulse Resp BP Pulse Ox 98.7 F 89 16 184/124 H 100 07/20/19 00:49 07/20/19 00:49 07/20/19 00:49 07/20/19 00:49 07/20/19 00:49 - Laboratory Result Diagrams: 07/20/19 02:39 07/20/19 02:39 Discharge - Discharge Clinical Impression: Abscess of right axilla Condition: Stable Disposition: ADMITTED OBSERVATION Admitting Provider: Surgicalist - Dr. Marquis Unit Admitted: Surgical Floor
[2019-07-20 02:59] LABS: ABSOLUTE EOSINOPHILS # (AUTO) 0.1 10^3/uL (0.0-0.6); ABSOLUTE LYMPHOCYTES (AUTO) 2.8 10^3/uL (0.5-4.7); ABSOLUTE MONOCYTES (AUTO) 0.8 10^3/uL (0.1-1.4); ABSOLUTE NEUT (AUTO) 8.3 10^3/uL (1.7-8.2); BASOPHILS % (AUTO) 0.3 % (0-2); EOSINOPHILS % (AUTO) 0.9 % (0-6); HEMATOCRIT 36.3 % (36.0-47.0); LYMPHOCYTES % (AUTO) 23.1 % (13-45); MEAN CORPUSCULAR HEMOGLOBIN 29.3 pg (27.0-33.4); MEAN CORPUSCULAR HGB CONC 33.2 g/dL (32.0-36.0); MEAN CORPUSCULAR VOLUME 88 fl (80-97); MONOCYTES % (AUTO) 6.8 % (3-13); PLATELET COUNT 201 10^3/uL (150-450); RED BLOOD COUNT 4.11 10^6/uL (3.72-5.28); RED CELL DISTRIBUTION WIDTH 15.4 % (11.5-14.0); SEGMENTED NEUTROPHILS % (AUTO) 68.9 % (42-78); TOTAL CELLS COUNTED % (AUTO) 100 %; WHITE BLOOD COUNT 12.1 10^3/uL (4.0-10.5)
[2019-07-20] MEDS ORDERED: PIPERACILLIN/TAZOBACTAM 3.375 GM VIAL IV ONE (03:28)
[2019-07-20] MEDS ORDERED: NORMAL SALINE 1000 ML 1,000 ML IV ONE (03:29)
[2019-07-20] MEDS ORDERED: PROMETHAZINE HCL INJ 25 MG/1 ML VIAL IV ONE (03:34)
[2019-07-20] MEDS: MORPHINE SULFATE 10 MG/ML INJ IV PRN ×5 (03:57→20:22)
[2019-07-20 04:53] LABS: ALBUMIN 3.8 g/dL (3.5-5.0); ALKALINE PHOSPHATASE 71 U/L (38-126); ASPARTATE AMINO TRANSFERASE 16 U/L (14-36); BILIRUBIN,TOTAL 0.2 mg/dL (0.2-1.3); BLOOD UREA NITROGEN 13 mg/dL (7-20); CALCIUM 9.1 mg/dL (8.4-10.2); GLUCOSE 110 mg/dL (75-110); POTASSIUM 4.2 mmol/L (3.6-5.0); TOTAL PROTEIN 6.5 g/dL (6.3-8.2)
[2019-07-20 04:58] LABS: ANION GAP 5 (5-19); CARBON DIOXIDE 25 mmol/L (22-30); CHLORIDE 109 mmol/L (98-107)
[2019-07-20] MEDS ORDERED: NORMAL SALINE 1000 ML 1,000 ML IV PRN (08:03)
[2019-07-20] MEDS ORDERED: PROMETHAZINE HCL INJ 25 MG/1 ML VIAL IV PRN ×2 (08:56→10:03)
[2019-07-20] MEDS ORDERED: LIDOCAINE 0.5% INJ-PF (5 MG/ML) 50 ML SDV ONE (09:32)
[2019-07-20] MEDS ORDERED: FENTANYL CITRATE INJ/PF 100 MCG/2 ML AMPUL IV PRN ×3 (10:03)
[2019-07-20] MEDS ORDERED: DIPHENHYDRAMINE HCL 50 MG/ML VIAL IV PRN (10:03)
[2019-07-20] MEDS ORDERED: MEPERIDINE HCL/PF INJ 25 MG/1 ML DISP.SYRIN IV PRN (10:03)
--- NOTE | 2019-07-20 10:19 | PDOC H&P ---
History of Present Illness Admission Date/PCP: 07/20/19 03:32 TASHI AGUERO PA-C Patient complains of: Right axilla pains History of Present Illness: CADE JONES is a 44 year old female with multiple IND of the right axillary abscesses due to hidradenitis, noted to have pains along the right axilla the past week and worse just prior to going to the ED last night. She denies any fever nor chills. Past Medical History Cardiac Medical History: Reports: Hypertension Pulmonary Medical History: Reports: Asthma Past Surgical History Past Surgical History: Reports: Orthopedic Surgery - back, Other - History of lumbar laminectomies 4 in the mid 1999s, history of hernia Social History Smoking Status: Current Every Day Smoker Cigarettes Packs Per Day: 0.5 Last Time Smoked: 07/20/2019 Frequency of Alcohol Use: Occasional Hx Recreational Drug Use: No Drugs: None Hx Prescription Drug Abuse: No - Advance Directive Resuscitation Status: Full Code Family History Family History: Reviewed & Not Pertinent Parental Family History Reviewed: Yes Children Family History Reviewed: No Sibling(s) Family History Reviewed.: No Medication/Allergy Home Medications: Carisoprodol [Soma] 250 mg PO BIDP PRN 02/22/19 Oxycodone HCl/Acetaminophen [Percocet 10-325 mg Tablet] 1 tab PO Q4HP PRN 02/22/19 Amlodipine Besylate [Norvasc 5 mg Tablet] 5 mg PO DAILY 07/20/19 Aspirin/Acetaminophen/Caffeine [Excedrin Migraine Caplet] 1 tab PO DAILYP PRN 07/20/19 Hydrochlorothiazide [Hydrodiuril 25 mg Tablet] 25 mg PO DAILY 07/20/19 Losartan Potassium 100 mg PO DAILY 07/20/19 Allergies/Adverse Reactions: adhesive tape Allergy (Verified 08/02/18 18:55) ketorolac [From Toradol] Allergy (Verified 12/29/18 17:33) tramadol Allergy (Verified 12/29/18 17:33) cyclobenzaprine [From Flexeril] Adverse Reaction (Verified 04/19/17 08:35) ibuprofen Adverse Reaction (Verified 04/19/17 08:36) methocarbamol [From Robaxin] Adverse Reaction (Verified 04/19/17 08:35) naproxen [From Naprosyn] Adverse Reaction (Verified 04/19/17 08:35) propoxyphene [From Darvocet-N] Adverse Reaction (Verified 04/19/17 08:35) sulfamethoxazole [From Bactrim] Adverse Reaction (Verified 04/19/17 08:36) trimethoprim [From Bactrim] Adverse Reaction (Verified 04/19/17 08:36) Review of Systems Constitutional: PRESENT: as per HPI Integumentary: PRESENT: other Physical Exam Vital Signs: Temp Pulse Resp BP Pulse Ox 98.8 F 77 17 150/84 H 100 07/20/19 08:55 07/20/19 08:55 07/20/19 08:55 07/20/19 08:55 07/20/19 08:55 Intake & Output 07/19/19 07/20/19 07/21/19 06:59 06:59 06:59 Weight 90.9 kg General appearance: PRESENT: mild distress Eye exam: PRESENT: conjunctiva pink Mouth exam: PRESENT: moist Neck exam: PRESENT: full ROM Respiratory exam: PRESENT: clear to auscultation gurpreet Cardiovascular exam: PRESENT: RRR Pulses: PRESENT: normal radial pulses Vascular exam: PRESENT: normal capillary refill Extremities exam: PRESENT: other - As an induration along the right axilla with market tenderness. Is difficulty extending her right arm due to pains on the right axilla Musculoskeletal exam: PRESENT: ambulatory, full ROM Neurological exam: PRESENT: alert, oriented to person, oriented to time, oriented to situation Psychiatric exam: PRESENT: appropriate affect Skin exam: PRESENT: normal color, warm Results Laboratory Results: 07/20/19 02:39 07/20/19 03:53 07/20/19 07/20/19 07/20/19 02:39 02:39 02:39 WBC 12.1 H RBC 4.11 Hgb 12.0 Hct 36.3 MCV 88 MCH 29.3 MCHC 33.2 RDW 15.4 H Plt Count 201 Seg Neutrophils % 68.9 Sodium Cancelled Potassium Cancelled Chloride Cancelled Carbon Dioxide Cancelled Anion Gap Cancelled BUN Cancelled Creatinine Cancelled Est GFR ( Amer) Cancelled Est GFR (Non-Af Amer) Cancelled Glucose Cancelled Calcium Cancelled Total Bilirubin Cancelled AST Cancelled Alkaline Phosphatase Cancelled Total Protein Cancelled Albumin Cancelled Serum HCG, Qual NEGATIVE 07/20/19 03:53 WBC RBC Hgb Hct MCV MCH MCHC RDW Plt Count Seg Neutrophils % Sodium 138.5 Potassium 4.2 Chloride 109 H Carbon Dioxide 25 Anion Gap 5 BUN 13 Creatinine 0.73 Est GFR ( Amer) > 60 Est GFR (Non-Af Amer) Glucose 110 Calcium 9.1 Total Bilirubin 0.2 AST 16 Alkaline Phosphatase 71 Total Protein 6.5 Albumin 3.8 Serum HCG, Qual Assessment & Plan - Diagnosis (1) Abscess of right axilla Is this a current diagnosis for this admission?: Yes (2) Narcotic dependency, continuous Is this a current diagnosis for this admission?: Yes (3) Smoker Is this a current diagnosis for this admission?: Yes - Time Time Spent: 30 to 50 Minutes - Inpatient Certification Medical Necessity: Need For IV Fluids, Need for Pain Control, Need for IV Antibiotics, Need for Surgery - Plan Summary Plan Summary: Plans: Started on IV antibiotics For I&D of right axillary abscess this morning
[2019-07-20] MEDS: FENTANYL CITRATE INJ/PF 100 MCG/2 ML AMPUL ONE ×2 (11:20→11:25)
--- NOTE | 2019-07-20 11:20 | Operative Report ---
Operative Report DATE OF SURGERY: 07/20/19 PREOPERATIVE DIAGNOSIS: Abscess right axilla POSTOPERATIVE DIAGNOSIS: Same OPERATION: Incision and drainage right axilla abscess SURGEON: DEANDRA AHMADI ANESTHESIA: LMAC TISSUE REMOVED OR ALTERED: Pus from the right axilla abscess and specimen sent for culture COMPLICATIONS: None ESTIMATED BLOOD LOSS: 15 cc QUANTITATIVE BLOOD LOSS: 15 INTRAOPERATIVE FINDINGS: Moderate sized abscess on the right axilla on previous I&D site. PROCEDURE: After adequate IV sedation patient was placed in supine position the right arm was extended in the right axilla prepped and draped in the usual sterile fashion. Appropriate timeout was then called. Next local lens anesthesia infiltrated over the abscess site. Appears to be in the previously drained area. A longitudinal incision was then made over the abscess site and a gush of purulent material extruded out. Cultures were obtained. The incision was extended distally on the previous scar. Incision was about 2 cm long. The cavity was then digitally palpated and no evidence of loculation noted. However it appears to taper towards the upper lateral aspect of the axilla where a counterincision was made at the site about less than 1 cm long. The cavity was then curetted and some hydradenitis cyst sac was noted. The cavity was then pulse lavage. The cavity was subsequently packed with quarter inch iodoform gauze. Sterile dressings placed over the operative site. Needle instrument sponge count were all correct estimated blood loss about 15 cc patient. Patient tolerated procedure well and brought to the PACU in satisfactory condition.
[2019-07-20] MEDS ORDERED: ONDANSETRON HCL INJ/PF 4 MG/2 ML SDV IV PRN (12:06)
[2019-07-20] MEDS ORDERED: MORPHINE SULFATE 10 MG/ML INJ IV PRN (12:06)
[2019-07-20] MEDS: OXYCODONE-ACETAMINOPHEN 5-325 MG TABLET PO PRN (13:22)
[2019-07-20] MEDS: PIPERACILLIN SODIUM/TAZOBACTAM 3.375 GM in NORMAL SALINE 100 ML IV SCH ×2 (13:35→19:23)
[2019-07-21] MEDS: PIPERACILLIN SODIUM/TAZOBACTAM 3.375 GM in NORMAL SALINE 100 ML IV SCH ×3 (00:16→05:50)
[2019-07-21 03:28] VITALS: BP 150/74
[2019-07-21] MEDS ORDERED: FLUCONAZOLE 100 MG TABLET PO ONE (04:30)
[2019-07-21] MEDS: OXYCODONE-ACETAMINOPHEN 5-325 MG TABLET PO PRN (05:26)
== END 2019-07-21 08:25 | disposition home or self-care (01) ==
LOC: ER 00:44 → EH 03:32 → 4N 04:37
PROVIDERS: ATTEND Surgery
DX: L02.411 Cutaneous abscess of right axilla (principal); L73.2 Hidradenitis suppurativa; F11.20 Opioid dependence, uncomplicated; F17.200 Nicotine dependence, unspecified, uncomplicated; Z79.899 Other long term (current) drug therapy; Z98.890 Other specified postprocedural states
CPT/HCPCS: 99284; 96375; 96365; 36415; 87070; 87205; 84703; 85025; 87075; 87077; 80053; 00400; 10061; G0378 ×2; A6266; J2250; J3010; J3490 ×2; J2270; A9270 ×3; J2550; J2405; J7050 ×2; J7030; J2704; J2543 ×2; 400

== ENCOUNTER 2019-07-29 14:19 | Emergency (ER) | payer MEDICARE ==
[2019-07-29 14:32] VITALS: BP 170/105
--- NOTE | 2019-07-29 14:52 | ER Document Report ---
ED Medical Screen (RME) - General Chief Complaint: Abscess Stated Complaint: ABSCESS/LEFT ARMPIT Time Seen by Provider: 07/29/19 14:52 Primary Care Provider: TASHI AGUERO PA-C [Primary Care Provider] - Follow up as needed Mode of Arrival: Ambulatory Information source: Patient Notes: 44-year-old female presents to ED for an abscess to the left axilla. She states on 07/19 she had a abscess removed from her right axilla. She states that this abscess started the day after she was discharged. She states she has been using her Hibiclens soap on this abscess since it started. She states she never gets her abscesses I indeed in the emergency room Dr. Marquis always does her abscesses. She says she will not let anyone touch them in the ED because it hurts too much. He states they can only be evaluated and treated while she is asleep. She states that when Dr. Perez discharged her on Friday she went home on antibiotics. Patient is alert oriented respirations regular nonlabored speaking in full sentences. I have greeted and performed a rapid initial assessment of this patient. A comprehensive ED assessment and evaluation of the patient, analysis of test results and completion of medical decision making process will be conducted by an additional ED providers. TRAVEL OUTSIDE OF THE [place] IN LAST 30 DAYS: No - Related Data Allergies/Adverse Reactions: adhesive tape Allergy (Verified 08/02/18 18:55) ketorolac [From Toradol] Allergy (Verified 12/29/18 17:33) tramadol Allergy (Verified 12/29/18 17:33) cyclobenzaprine [From Flexeril] Adverse Reaction (Verified 04/19/17 08:35) ibuprofen Adverse Reaction (Verified 04/19/17 08:36) methocarbamol [From Robaxin] Adverse Reaction (Verified 04/19/17 08:35) naproxen [From Naprosyn] Adverse Reaction (Verified 04/19/17 08:35) propoxyphene [From Darvocet-N] Adverse Reaction (Verified 04/19/17 08:35) sulfamethoxazole [From Bactrim] Adverse Reaction (Verified 04/19/17 08:36) trimethoprim [From Bactrim] Adverse Reaction (Verified 04/19/17 08:36) Past Medical History - Past Medical History Cardiac Medical History: Reports: Hx Hypertension Pulmonary Medical History: Reports: Hx Asthma Renal/ Medical History: Denies: Hx Peritoneal Dialysis Past Surgical History: Reports: Hx Breast Surgery - biopsy 02/23/19, Hx Orthopedic Surgery - back, Other - History of lumbar laminectomies 4 in the mid , history of hernia Physical Exam - Vital signs Vitals: Temp Pulse Resp BP Pulse Ox 98.7 F 100 16 170/105 H 98 07/29/19 14:07/29/19 14:07/29/19 14:29 07/29/19 14:29 07/29/19 14:29 Course - Vital Signs Vital signs: Temp Pulse Resp BP Pulse Ox 98.7 F 100 16 170/105 H 98 07/29/19 14:29 07/29/19 14:29 07/29/19 14:29 07/29/19 14:29 07/29/19 14:29 Doctor's Discharge - Discharge Referrals: TASHI AGUERO PA-C [Primary Care Provider] - Follow up as needed
[2019-07-29 15:16] LABS: ABSOLUTE EOSINOPHILS # (AUTO) 0.1 10^3/uL (0.0-0.6); ABSOLUTE LYMPHOCYTES (AUTO) 3.4 10^3/uL (0.5-4.7); ABSOLUTE MONOCYTES (AUTO) 0.7 10^3/uL (0.1-1.4); ABSOLUTE NEUT (AUTO) 8.3 10^3/uL (1.7-8.2); BASOPHILS % (AUTO) 0.3 % (0-2); EOSINOPHILS % (AUTO) 1.1 % (0-6); HEMATOCRIT 36.9 % (36.0-47.0); HEMOGLOBIN 12.6 g/dL (12.0-15.5); LYMPHOCYTES % (AUTO) 26.7 % (13-45); MEAN CORPUSCULAR HEMOGLOBIN 29.5 pg (27.0-33.4); MEAN CORPUSCULAR HGB CONC 34.2 g/dL (32.0-36.0); MEAN CORPUSCULAR VOLUME 86 fl (80-97); MONOCYTES % (AUTO) 5.9 % (3-13); PLATELET COUNT 277 10^3/uL (150-450); RED BLOOD COUNT 4.28 10^6/uL (3.72-5.28); RED CELL DISTRIBUTION WIDTH 13.8 % (11.5-14.0); TOTAL CELLS COUNTED % (AUTO) 100 %; WHITE BLOOD COUNT 12.6 10^3/uL (4.0-10.5)
[2019-07-29 15:32] LABS: ALBUMIN 4.2 g/dL (3.5-5.0); ALKALINE PHOSPHATASE 76 U/L (38-126); ASPARTATE AMINO TRANSFERASE 16 U/L (14-36); BILIRUBIN,TOTAL 0.2 mg/dL (0.2-1.3); BLOOD UREA NITROGEN 9 mg/dL (7-20); CALCIUM 9.3 mg/dL (8.4-10.2); GLUCOSE 132 mg/dL (75-110); POTASSIUM 3.7 mmol/L (3.6-5.0)
[2019-07-29 15:37] LABS: CARBON DIOXIDE 28 mmol/L (22-30); CHLORIDE 104 mmol/L (98-107)
[2019-07-29 15:40] LABS: ANION GAP 6 (5-19)
== END 2019-07-29 16:18 | disposition left against medical advice (07) ==
LOC: ER 14:19
DX: Z53.21 Procedure and treatment not carried out due to patient leaving prior to being seen by health care provider (principal); L02.412 Cutaneous abscess of left axilla
CPT/HCPCS: 36415; 80053; 85025; 99281

== ENCOUNTER 2019-09-10 11:29 | Day surgery (SDC) | payer MEDICARE ==
--- NOTE | 2019-09-07 19:36 | EKG REPORT ---
SEVERITY:- BORDERLINE ECG - SINUS RHYTHM PROBABLE LEFT ATRIAL ABNORMALITY : Confirmed by: Lia Cummings 07-Sep-2019 19:35:35
[~2019-09-10 11:29] MED LIST changes: +CEFAZOLIN 2 GM/D5W RTU 2 GM/50 ML RTUPB IV PRN; -DEXAMETHASONE SOD PHOSPHATE INJ 4 MG/1 ML VIAL ONE; +LACTATED RINGERS 1000 ML IV PRN; +LIDOCAINE 0.5% INJ-PF (5 MG/ML) 50 ML SDV SUBCUT PRN; -ONDANSETRON HCL INJ/PF 4 MG/2 ML SDV ONE
[2019-09-10] MEDS ORDERED: BUPIVACAINE HCL 0.25% /EPINEPHRINE INJ/PF 30 ML SDV ONE (12:17)
[2019-09-10] MEDS ORDERED: DEXAMETHASONE SOD PHOSPHATE INJ 4 MG/1 ML VIAL ONE (12:21)
[2019-09-10] MEDS ORDERED: HYDROMORPHONE HCL INJ/PF 2 MG/ML AMPULE ONE (12:21)
[2019-09-10] MEDS ORDERED: LIDOCAINE 2% INJ-PF (20 MG/ML) 10 ML AMPUL ONE (12:21)
[2019-09-10] MEDS ORDERED: ONDANSETRON HCL INJ/PF 4 MG/2 ML SDV ONE (12:21)
[2019-09-10] MEDS ORDERED: MIDAZOLAM 2 MG/2 ML INJ ONE (12:21)
[2019-09-10] MEDS ORDERED: PROPOFOL INJ 200 MG/20 ML VIAL IV ONE (12:21)
[2019-09-10] MEDS ORDERED: PROMETHAZINE HCL INJ 25 MG/1 ML VIAL IV PRN ×2 (13:29)
[2019-09-10] MEDS ORDERED: MEPERIDINE HCL/PF INJ 25 MG/1 ML DISP.SYRIN IV PRN (13:29)
[2019-09-10] MEDS ORDERED: DIPHENHYDRAMINE HCL 50 MG/ML VIAL IV PRN (13:29)
[2019-09-10] MEDS ORDERED: FENTANYL CITRATE INJ/PF 100 MCG/2 ML AMPUL IV PRN ×3 (13:29)
[2019-09-10] MEDS ORDERED: ONDANSETRON HCL INJ/PF 4 MG/2 ML SDV IV PRN (13:29)
--- NOTE | 2019-09-10 13:59 | Operative Report ---
Nonrecallable Operative Report DATE OF SURGERY: 09/10/19 PREOPERATIVE DIAGNOSIS: Hidradenitis right axilla POSTOPERATIVE DIAGNOSIS: Hidradenitis right axilla OPERATION: Excision of hidradenitis right axilla SURGEON: JUSTINE FOWLER 1[employer] INSTRUCTOR: CONTRERAS ANDERSEN ANESTHESIA: LMAC TISSUE REMOVED OR ALTERED: Axillary skin COMPLICATIONS: None ESTIMATED BLOOD LOSS: 10 cc INTRAOPERATIVE FINDINGS: See note PROCEDURE: Patient was brought to the operating awake alert stable condition placed on the operative supine position local MAC anesthesia. After appropriate timeout and site verification the procedure commenced. The right arm and axilla were prepped and draped in usual sterile fashion. Elliptical incision was made in the right axilla approximately 15 cm long by 4 cm wide to encompass the axillary skin hairbearing area and multiple crypts and pits. We carried our dissection down through subcutaneous tissue with Bovie cautery until we reached the deep fatty tissue and excised it. Superior and inferior flaps were raised with seen retractor and Bovie cautery and the skin was closed 2 layers, the i subcutaneous -layer the subcutaneous tissue with 3-0 Vicryl and the epidermis was closed with interrupted 3-0 nylon suture. Sterile dressing was applied which completed the procedure Estimated blood loss was less than 10 cc sponge needle counts were correct x2. Patient was awakened in the operating room transferred recovery in stable condition. JODI Miguel was present for the entire procedure help with wound retraction and wound closure
--- NOTE | 2019-09-10 14:04 | Discharge Summary ---
Discharge Summary (SDC) - Discharge Final Diagnosis: Hidradenitis right axilla Date of Surgery: 09/10/19 Discharge Date: 09/10/19 Condition: Good Forms: ASU Anesthesia D/C Instruction, Discharge POC-Surgical Service Treatment or Instructions: Change dressing once or twice a day as needed with sterile gauze and tape Prescriptions: Hydrocodone/Acetaminophen [[place] 10-325 mg Tablet] 1 tab PO Q6HP PRN #20 tablet PRN Reason: Referrals: TASHI AGUERO PA-C [Primary Care Provider] - Discharge Diet: As Tolerated Discharge Activity: Activity As Tolerated, No Lifting Over 10 Pounds Report the Following to Your Physician Immediately: Shortness of Breath, Nausea, Vomiting
[2019-09-10] MEDS: FENTANYL CITRATE INJ/PF 100 MCG/2 ML AMPUL ONE ×2 (14:10→14:20)
[2019-09-10] MEDS ORDERED: OXYCODONE-ACETAMINOPHEN 5-325 MG TABLET PO PRN (14:33)
[2019-09-10] MEDS ORDERED: OXYCODONE HCL IR 5 MG TABLET PO PRN (14:33)
[2019-09-10] MEDS ORDERED: OXYCODONE HCL IR 5 MG TABLET ONE (15:45)
[2019-09-10] MEDS ORDERED: OXYCODONE-ACETAMINOPHEN 5-325 MG TABLET ONE (15:46)
[2019-09-10] MEDS ORDERED: CEFAZOLIN INJ 1 GM VIAL ONE (15:46)
[2019-09-10 16:21] VITALS: BP 158/99
== END 2019-09-10 16:00 | disposition home or self-care (01) ==
LOC: OROUT 11:29
PROVIDERS: ATTEND Surgery
DX: L73.2 Hidradenitis suppurativa (principal); Z03.818 Encounter for observation for suspected exposure to other biological agents ruled out
CPT/HCPCS: 93005; 36415; 84132; 81025; 88305 ×2; 93010; 11451; U0003; J2250; J3490 ×2; J0690; J1100; J3010; A9270 ×2; J1170; J2405; J2704; 400; 87635

== ENCOUNTER 2019-11-12 15:34 | Emergency (ER) | payer MEDICARE ==
[2019-11-12 15:43] VITALS: BP 152/104
[2019-11-12] MEDS ORDERED: DEXAMETHASONE SOD PHOS INJ 10 MG/1 ML VIAL IM ONE (17:11)
[2019-11-12] MEDS ORDERED: HYDROMORPHONE HCL INJ/PF 2 MG/ML AMPULE IM ONE (17:16)
--- NOTE | 2019-11-12 17:19 | ER Document Report ---
HPI - HPI Time Seen by Provider: 11/12/19 17:06 Pain Level: 5 Context: Patient is a 44-year-old female who presents emergency department with a chief complaint of back pain. Patient states that she has history of back surgeries in the past. Patient states that she is currently on chronic pain management. She is under contract, but is still able to get doses in the emergency department for extreme pain. Patient states that she tried to call pain management, but they were closed today. Patient states that she always has numbness and tingling down her legs, which is her normal. Denies any loss of bladder or bowel function. States that the pain is in her pain where she had her back plate placed. Patient has been trying her medications that she has at home, but has had little relief. - ROS Systems Reviewed and Negative: Yes All other systems reviewed and negative - CONSTITUTIONAL Constitutional: DENIES: Fever, Chills - NEURO Neurology: DENIES: Headache - CARDIOVASCULAR Cardiovascular: DENIES: Chest pain - RESPIRATORY Respiratory: DENIES: Trouble Breathing, Coughing - REPRODUCTIVE Reproductive: DENIES: : - MUSCULOSKELETAL Musculoskeletal: REPORTS: Back Pain. DENIES: Extremity pain, Swelling - DERM Skin Color: Normal Skin Problems: None Past Medical History - General Information source: Patient - Social History Smoking Status: Current Every Day Smoker Frequency of alcohol use: None Drug Abuse: None Family History: Reviewed & Not Pertinent - Past Medical History Cardiac Medical History: Reports: Hx Hypertension - on meds Denies: Hx Coronary Artery Disease, Hx Heart Attack Pulmonary Medical History: Reports: Hx Asthma - inhaler Denies: Hx Bronchitis, Hx COPD, Hx Pneumonia Neurological Medical History: Denies: Hx Cerebrovascular Accident, Hx Seizures Renal/ Medical History: Denies: Hx Peritoneal Dialysis Musculoskeletal Medical History: Denies Hx Arthritis Past Surgical History: Reports: Hx Breast Surgery - biopsy 02/23/19, Hx Orthopedic Surgery - back, Other - History of lumbar laminectomies 4 in the mid 1999s, history of hernia - Immunizations Hx Diphtheria, Pertussis, Tetanus Vaccination: Yes Vertical Provider Document - CONSTITUTIONAL Agree With Documented VS: Yes Exam Limitations: No Limitations General Appearance: No Apparent Distress - INFECTION CONTROL TRAVEL OUTSIDE OF THE [place] IN LAST 30 DAYS: No - HEENT HEENT: Atraumatic - NECK Neck: Normal Inspection - RESPIRATORY Respiratory: No Respiratory Distress - CARDIOVASCULAR Cardiovascular: Regular Rate, Regular Rhythm Pulses: Normal: Radial - MUSCULOSKELETAL/EXTREMETIES Musculoskeletal/Extremeties: FROM, Tender - Lower back - NEURO Level of Consciousness: Awake, Alert, Appropriate Motor/Sensory: No Motor Deficit, No Sensory Deficit - DERM Integumentary: Warm, Dry, No Rash Course - Re-evaluation Re-evalutation: 11/12/19 17:26 Differential diagnosis for back pain includes muscle spasm, muscle strain, slipped disc cauda equina syndrome, vertebral fracture, vertebral tumor, epidural abscess, pyelonephritis, or AAA. Based on history and exam, the most likely etiology of the patient's back pain is chronic. Emergent MRI is not indicated at this time because the patient does not have new weakness, or cauda equina syndrome. Patient does not have bladder or bowel dysfunction. Patient does not have history of IV drug use, therefore, I do not suspect an epidural abscess. Patient does not have recent weight loss or night sweats. Patient has a history of cervical cancer. Patient received a dose of Decadron and Dilaudid here in the emergency department. She will follow-up with pain management. Follow-up precautions were given. Verbal discharge instructions were given to the patient. They verbalized understanding. They are stable for discharge. - Vital Signs Vital signs: Temp Pulse Resp BP Pulse Ox 98.7 F 93 18 152/104 H 100 11/12/19 15:41 11/12/19 15:41 11/12/19 15:41 11/12/19 15:41 11/12/19 15:41 Discharge - Discharge Clinical Impression: Narcotic dependency, continuous Chronic back pain Qualifiers: Back pain location: low back pain Back pain laterality: bilateral Sciatica presence: without sciatica Qualified Code(s): M54.5 - Low back pain; G89.29 - Other chronic pain Condition: Stable Disposition: HOME, SELF-CARE Additional Instructions: You were seen today in the emergency department for back pain. You should received a dose of steroids here in the emergency department. This should help you with your back pain over the next few days. You also received a shot of pain medication. Please let your pain management know that you were here. Please follow-up with pain management and your primary care provider in regards to this visit. Referrals: TASHI AGUERO PA-C [Primary Care Provider] - Follow up in 3-5 days
== END 2019-11-12 17:43 | disposition home or self-care (01) ==
LOC: ER 15:34
DX: G89.29 Other chronic pain (principal); M54.5 Low back pain; F17.200 Nicotine dependence, unspecified, uncomplicated; I10 Essential (primary) hypertension
CPT/HCPCS: 99283; 96372; J1170; J1100

== ENCOUNTER 2020-05-04 17:18 | Emergency (ER) | payer MEDICARE ==
--- NOTE | 2020-05-04 17:54 | ER Document Report ---
ED Medical Screen (RME) - General Chief Complaint: Blood Pressure Problem Stated Complaint: BLOOD PRESSURE Time Seen by Provider: 05/04/20 17:49 Primary Care Provider: TASHI AGUERO PA-C [Primary Care Provider] - Follow up as needed Notes: HPI: Patient is a poor historian. A 45-year-old female with history of hypertension was on 3 blood pressure medication she states she has been taking presenting for left-sided headache left lateral neck pain, flushing sensation over the last 3 days she believes her blood pressure is "out of whack". Patient with history of 2 strokes previously in 2010 2015 per the patient with some left-sided weakness residually. She has no chest pain or shortness of breath PHYSICAL EXAMINATION: Patient with mild weakness left arm left leg. No slurred speech. Lung sounds are clear to auscultation regular rate and rhythm I have greeted and performed a rapid initial assessment of this patient. A comprehensive ED assessment and evaluation of the patient, analysis of test results and completion of medical decision making process will be conducted by an additional ED providers. Please note that clinical decision making for this patient was made during the 2019 pandemic of novel coronavirus which caused a significant strain on the healthcare system including at this particular facility. Criteria for admission discharge and level of care decisions as well as treatment decisions have necessarily changed TRAVEL OUTSIDE OF THE [place] IN LAST 30 DAYS: No - Related Data Allergies/Adverse Reactions: adhesive tape Allergy (Verified 05/04/20 17:47) ketorolac [From Toradol] Allergy (Verified 05/04/20 17:47) tramadol Allergy (Verified 05/04/20 17:47) cyclobenzaprine [From Flexeril] Adverse Reaction (Verified 05/04/20 17:47) ibuprofen Adverse Reaction (Verified 05/04/20 17:47) methocarbamol [From Robaxin] Adverse Reaction (Verified 05/04/20 17:47) naproxen [From Naprosyn] Adverse Reaction (Verified 05/04/20 17:47) propoxyphene [From Darvocet-N] Adverse Reaction (Verified 05/04/20 17:47) sulfamethoxazole [From Bactrim] Adverse Reaction (Verified 05/04/20 17:47) trimethoprim [From Bactrim] Adverse Reaction (Verified 05/04/20 17:47) Past Medical History - Past Medical History Cardiac Medical History: Reports: Hx Hypertension - on meds Denies: Hx Coronary Artery Disease, Hx Heart Attack Pulmonary Medical History: Reports: Hx Asthma - inhaler Denies: Hx Bronchitis, Hx COPD, Hx Pneumonia Neurological Medical History: Denies: Hx Cerebrovascular Accident, Hx Seizures Renal/ Medical History: Denies: Hx Peritoneal Dialysis Musculoskeltal Medical History: Denies Hx Arthritis Past Surgical History: Reports: Hx Breast Surgery - biopsy 02/23/19, Hx Orthopedic Surgery - back, Other - History of lumbar laminectomies 4 in the mid , history of hernia - Immunizations Hx Diphtheria, Pertussis, Tetanus Vaccination: Yes Physical Exam - Vital signs Vitals: Temp Pulse Resp BP Pulse Ox 98.2 F 96 16 184/121 H 100 05/04/20 17:21 05/04/20 17:21 05/04/20 17:21 05/04/20 17:21 05/04/20 17:21 Course - Vital Signs Vital signs: Temp Pulse Resp BP Pulse Ox 98.2 F 96 16 184/121 H 100 05/04/20 17:21 05/04/20 17:21 05/04/20 17:21 05/04/20 17:21 05/04/20 17:21 Doctor's Discharge - Discharge Referrals: TASHI AGUERO PA-C [Primary Care Provider] - Follow up as needed
--- NOTE | 2020-05-04 18:41 | RADIOLOGY REPORT (SQ) ---
EXAM DESCRIPTION: CT HEAD WITHOUT IMAGES COMPLETED DATE/TIME: 05/04/2020 3:29 pm REASON FOR STUDY: HTN, left headache COMPARISON: 09/23/2017 TECHNIQUE: Axial images acquired through the brain without intravenous contrast. Images reviewed wi th bone, brain and subdural windows. Additional sagittal and coronal reconstructions were generated. Images stored on PACS. All CT scanners at this facility use dose modulation, iterative reconstruction, and/or weight based d osing when appropriate to reduce radiation dose to as low as reasonably achievable (ALARA). [facility]: Dose Right [facility]: CareDose [facility]: Dose Right [facility]: Teradose 4D [facility]: Smart T-Quad 22 RADIATION DOSE: CT Rad equipment meets quality standard of care and radiation dose reduction techniq ues were employed. CTDIvol: 53.2 mGy. DLP: 1097 mGy-cm. mGy. LIMITATIONS: None. FINDINGS: VENTRICLES: Normal size and contour. CEREBRUM: No masses. No hemorrhage. No midline shift. No evidence for acute infarction. Normal gra y/white matter differentiation. No areas of low density in the white matter. CEREBELLUM: No masses. No hemorrhage. No alteration of density. No evidence for acute infarction. EXTRAAXIAL SPACES: No fluid collections. No masses. ORBITS AND GLOBE: No intra- or extraconal masses. Normal contour of globe without masses. CALVARIUM: No fracture. PARANASAL SINUSES: Mild mucosal thickening posterior left maxillary sinus. Overall aeration has impr shante from prior. SOFT TISSUES: No mass or hematoma. OTHER: No other significant finding. IMPRESSION: No acute intracranial abnormality on noncontrast CT. EVIDENCE OF ACUTE STROKE: NO. COMMENT: Quality ID # [id number]: Final reports with documentation of one or more dose reduction techniques (e.g., Automated exposure control, adjustment of the mA and/or kV according to patient size, use of iterative reconstruction technique) TECHNICAL DOCUMENTATION: JOB ID: [id number] 2010 [employer]- All Rights Reserved Reading location - IP/workstation name: [email or web address]
--- NOTE | 2020-05-04 19:14 | ER Document Report ---
ED Blood Pressure Problem - General Chief Complaint: High Blood Pressure Stated Complaint: BLOOD PRESSURE Time Seen by Provider: 05/04/20 17:49 Primary Care Provider: TASHI AGUERO PA-C [Primary Care Provider] - Follow up as needed Mode of Arrival: Ambulatory Information source: Patient Notes: 45-year-old woman presenting to the emergency department with a history of elevated blood pressures and headache. She contacted her doctor's office today because she had a headache and felt that her pressure was elevated. She was told that she should go to the pharmacy and have the blood pressure checked. Pharmacy she was noted to have blood pressure 187/110. She continued to have a headache in the pharmacy worker suggested that she go to the emergency department for further evaluation and treatment. Patient denies chest pain or shortness of breath. She denies swelling in legs and feet and denies neurologic symptoms weakness tingling or numbness. She has had a headache which she has had in the past with elevated blood pressures, she today noted some blurring of vision in her left eye. TRAVEL OUTSIDE OF THE [place] IN LAST 30 DAYS: No - Related Data Allergies/Adverse Reactions: adhesive tape Allergy (Verified 05/04/20 17:47) ketorolac [From Toradol] Allergy (Verified 05/04/20 17:47) tramadol Allergy (Verified 05/04/20 17:47) cyclobenzaprine [From Flexeril] Adverse Reaction (Verified 05/04/20 17:47) ibuprofen Adverse Reaction (Verified 05/04/20 17:47) methocarbamol [From Robaxin] Adverse Reaction (Verified 05/04/20 17:47) naproxen [From Naprosyn] Adverse Reaction (Verified 05/04/20 17:47) propoxyphene [From Darvocet-N] Adverse Reaction (Verified 05/04/20 17:47) sulfamethoxazole [From Bactrim] Adverse Reaction (Verified 05/04/20 17:47) trimethoprim [From Bactrim] Adverse Reaction (Verified 05/04/20 17:47) Past Medical History - Social History Smoking Status: Current Every Day Smoker Chew tobacco use (# tins/day): No Frequency of alcohol use: None Drug Abuse: None Family History: Reviewed & Not Pertinent - Past Medical History Cardiac Medical History: Reports: Hx Hypertension - on meds Denies: Hx Coronary Artery Disease, Hx Heart Attack Pulmonary Medical History: Reports: Hx Asthma - inhaler Denies: Hx Bronchitis, Hx COPD, Hx Pneumonia Neurological Medical History: Denies: Hx Cerebrovascular Accident, Hx Seizures Renal/ Medical History: Denies: Hx Peritoneal Dialysis Musculoskeletal Medical History: Denies Hx Arthritis Past Surgical History: Reports: Hx Breast Surgery - biopsy 02/23/19, Hx Orthopedic Surgery - back, Other - History of lumbar laminectomies 4 in the mid 1999s, history of hernia - Immunizations Hx Diphtheria, Pertussis, Tetanus Vaccination: Yes Review of Systems - Review of Systems Notes: Constitutional: Negative for fever. HENT: Negative for sore throat. Eyes: Negative for visual changes. Cardiovascular: See HPI Respiratory: Negative for shortness of breath. Gastrointestinal: Negative for abdominal pain, vomiting or diarrhea. Genitourinary: Negative for dysuria. Musculoskeletal: Negative for back pain. Skin: Negative for rash. Neurological: See HPI 10 point ROS negative except as marked above and in HPI. Physical Exam - Vital signs Vitals: Temp Pulse Resp BP Pulse Ox 98.2 F 96 16 184/121 H 100 05/04/20 17:21 05/04/20 17:21 05/04/20 17:21 05/04/20 17:21 05/04/20 17:21 - Notes Notes: PHYSICAL EXAMINATION: Physical Exam: General: Well-nourished well-developed female in no acute distress HEENT: NC/AT, pupils equal round and reactive to light, MM moist,nares clear, oropharynx clear, airway patent Neck: supple, no adenopathy, no masses. Good range of motion Lungs: clear, no wheezing, no rales no rhonchi CVS: Regular rate and rhythm no murmur gallop or rub Abdomen: Soft, active, nontender, no masses, no hepatosplenomegaly Ext: No edema, clubbing or cyanosis. Neuro: Alert and responsive, moving all 4 extremities on command, cranial nerves intact, no focal findings Skin: Intact no open lesions, no rash PSYCH: Normal mood, normal affect. Course - Vital Signs Vital signs: Temp Pulse Resp BP Pulse Ox 97.9 F 96 17 121/80 95 05/04/20 23:00 05/04/20 17:21 05/04/20 22:31 05/04/20 22:31 01/28/21 22:31 - Laboratory Results Result Diagrams: 05/04/20 20:00 05/04/20 20:00 Laboratory Results Interpreted: 05/04/20 05/04/20 20:00 20:00 WBC 12.7 H RDW 14.1 H Sodium 136.7 L Critical Laboratory Results Reviewed: No Critical Results - Radiology Results Critical Radiology Results Reviewed: No Critical Results Discharge - Discharge Clinical Impression: Poorly-controlled hypertension, Headache Condition: Good Disposition: HOME, SELF-CARE Instructions: Clonidine (Catapres) ([facility]), High Blood Pressure ([facility]) Additional Instructions: You were seen in the emergency department tonight with high blood pressure which is poorly controlled. You were given medications in the emergency department to bring the blood pressure down. You may increase below the pain to 10 mg daily, 2 of the 5 mg tablets. You are also given a prescription for clonidine 0.1 mg tablets, you may use the clonidine if your blood pressures are running high after having taken your usual medications. These take 1 dose and wait 1 hour and repeat the blood pressures. Please follow-up with your primary care doctor on Friday regarding the long-term management of your blood pressure. If your symptoms are increasing or if you are having other concerns you may return to the emergency department for further evaluation and treatment HOME CARE INSTRUCTIONS & INFORMATION: Thank you for choosing us for your medical needs. We hope you're satisfied with the care you received. After you leave, you must properly care for your problem and, at the same time, observe its progress. Any condition can change. Some illnesses can change rapidly over hours or days. If your condition worsens, return to the Emergency Department or see your physician promptly. ABOUT YOUR X-RAYS AND EKG'S: If you had an EKG or X-rays taken, they have been read by the Emergency Physician. The X-rays and EKG's will also be read by a Radiologist or Continuous Crusher Operator within 24 hours. If discrepancies are noted, you will be notified by telephone. Please be certain the ED has a correct telephone number & address where you can be reached. Also, realize that some fractures or abnormalities do not show up on initial X-rays. If your symptoms continue, see your physician. ABOUT YOUR LABORATORY TEST: If you had laboratory tests, the results have been reviewed by the Emergency Physician. Some test results (for example cultures) may not be available for several days. You will be contacted if any test result shows you need additional treatment. Please be certain the ED has a correct telephone number and address where you can be reached. ABOUT YOUR MEDICATIONS: You will receive instructions on how to take your medicine on the prescription label you receive. Additional information may be provided by the Pharmacy. If you have questions afterwards, call the ED for clarification or further instructions. Some prescribed medications may cause drowsiness. Do not perform tasks such as driving a car or operating machinery without consulting your Pharmacist. If you feel you need a refill of pain medication, your condition will need re-evaluation. Please do not call for a refill of any medication. ABOUT YOUR SIGNATURE: Signature of this document acknowledges to followin. Understanding that you received emergency treatment and that you may be released before al medical problems are known or treated. Please be certain the ED has a correct phone number & address where you can be reached. 2. Acknowledgement that you will arrange for follow-up care as recommended. 3. Authorization for the Emergency Physician to provide information to your follow-up Physician in order to maximize your care. AT ANY TIME, IF YOUR SYMPTOMS CHANGE SIGNIFICANTLY OR WORSEN OR YOU DEVELOP NEW SYMPTOMS, RETURN TO THE EMERGENCY DEPARTMENT IMMEDIATELY FOR RE-EVALUATION. OUR GOAL IS TO PROVIDE EXCELLENT MEDICAL CARE! WE HOPE THAT WE HAVE MET YOUR EXPECTATIONS DURING YOUR EMERGENCY DEPARTMENT VISIT AND THAT YOU FEEL YOU HAVE RECEIVED EXCELLENT CARE! Prescriptions: Clonidine HCl [Catapres] 0.1 mg PO Q12 #30 tablet Referrals: TASHI AGUERO PA-C [Primary Care Provider] - Follow up as needed
[2020-05-04] MEDS ORDERED: NITROGLYCERIN 2% OINTMENT 1 GM PACKET TP ONE (19:15)
[2020-05-04] MEDS ORDERED: CLONIDINE HCL 0.1 MG TABLET PO ONE (19:16)
[2020-05-04] MEDS ORDERED: LABETALOL HCL INJ 20 MG/4 ML DISP.SYRIN IV ONE (19:18)
[2020-05-04] MEDS ORDERED: ACETAMINOPHEN 325 MG TABLET PO ONE (19:25)
--- NOTE | 2020-05-04 19:59 | EKG REPORT ---
SEVERITY:- BORDERLINE ECG - SINUS RHYTHM PROBABLE LEFT ATRIAL ABNORMALITY BORDERLINE T ABNORMALITIES, ANT-LAT LEADS : Confirmed by: Phil Thomas MD 04-May-2020 19:58:13
[2020-05-04 20:19] LABS: ABSOLUTE BASOPHILS # (AUTO) 0.1 10^3/uL (0.0-0.2); ABSOLUTE EOSINOPHILS # (AUTO) 0.1 10^3/uL (0.0-0.6); ABSOLUTE LYMPHOCYTES (AUTO) 3.9 10^3/uL (0.5-4.7); ABSOLUTE MONOCYTES (AUTO) 0.7 10^3/uL (0.1-1.4); ABSOLUTE NEUT (AUTO) 7.9 10^3/uL (1.7-8.2); BASOPHILS % (AUTO) 0.9 % (0-2); EOSINOPHILS % (AUTO) 0.9 % (0-6); HEMATOCRIT 40.9 % (36.0-47.0); HEMOGLOBIN 13.4 g/dL (12.0-15.5); LYMPHOCYTES % (AUTO) 30.5 % (13-45); MEAN CORPUSCULAR HEMOGLOBIN 28.1 pg (27.0-33.4); MEAN CORPUSCULAR HGB CONC 32.8 g/dL (32.0-36.0); MEAN CORPUSCULAR VOLUME 86 fl (80-97); MONOCYTES % (AUTO) 5.5 % (3-13); PLATELET COUNT 243 10^3/uL (150-450); RED BLOOD COUNT 4.78 10^6/uL (3.72-5.28); RED CELL DISTRIBUTION WIDTH 14.1 % (11.5-14.0); SEGMENTED NEUTROPHILS % (AUTO) 62.2 % (42-78); TOTAL CELLS COUNTED % (AUTO) 100 %; WHITE BLOOD COUNT 12.7 10^3/uL (4.0-10.5)
[2020-05-04] MEDS ORDERED: ONDANSETRON HCL INJ/PF 4 MG/2 ML SDV IV ONE (20:27)
[2020-05-04 20:37] LABS: ALBUMIN 4.5 g/dL (3.5-5.0); ALKALINE PHOSPHATASE 84 U/L (38-126); ANION GAP 9 (5-19); ASPARTATE AMINO TRANSFERASE 21 U/L (14-36); BILIRUBIN,DIRECT 0.2 mg/dL (0.0-0.4); BILIRUBIN,TOTAL 0.4 mg/dL (0.2-1.3); BLOOD UREA NITROGEN 12 mg/dL (7-20); CALCIUM 9.8 mg/dL (8.4-10.2); CARBON DIOXIDE 23 mmol/L (22-30); CHLORIDE 105 mmol/L (98-107); GLUCOSE 99 mg/dL (75-110); POTASSIUM 4.2 mmol/L (3.6-5.0); TOTAL PROTEIN 7.5 g/dL (6.3-8.2)
[2020-05-04 21:28] LABS: APPEARANCE,URINE CLEAR; BILIRUBIN,URINE NEGATIVE (NEGATIVE); COLOR,URINE YELLOW; GLUCOSE, URINE NEGATIVE (NEGATIVE); KETONES,URINE NEGATIVE (NEGATIVE); LEUKOCYTE ESTERASE,URINE NEGATIVE (NEGATIVE); NITRITE,URINE NEGATIVE (NEGATIVE); PROTEIN,URINE NEGATIVE (NEGATIVE); URINE SPECIFIC GRAVITY 1.014; UROBILINOGEN,URINE NEGATIVE mg/dL (<2.0)
[2020-05-04 22:54] VITALS: BP 121/80
== END 2020-05-04 23:06 | disposition home or self-care (01) ==
LOC: ER 17:18
DX: I10 Essential (primary) hypertension (principal); R51.9 Headache, unspecified; H53.8 Other visual disturbances; F17.200 Nicotine dependence, unspecified, uncomplicated; J45.909 Unspecified asthma, uncomplicated; Z91.048 Other nonmedicinal substance allergy status; Z88.6 Allergy status to analgesic agent
CPT/HCPCS: 93005; 99285; 96374; 96375; 36415; 85025; 80053; 81001; 84484; 70450; 93010; A9270 ×2; J3490; J2405